=== PATIENT | male | born 1975 | race Caucasian/White ===

== ENCOUNTER 2017-10-04 19:06 | Emergency (ER) | payer BC ==
[2017-10-04 19:36] LABS: Absolute Lymphocytes (CBC) 1.9 K/uL (0.7-4.9); Absolute Monocytes 0.6 K/uL (0.1-1.3); Absolute Neutrophil 6.9 K/uL (1.8-8.0); Basophils % 0.4 % (0-1.3); Eosinophils % 0.8 % (0-4.4); Lymphocytes % 20.1 % (15.3-44.8); MCV 90.1 fL (80-100); MPV 7.9 fL (7.6-11.3)
[2017-10-04 19:56] LABS: Potassium 3.1 mEq/L (3.6-5.0)
[2017-10-04 20:03] LABS: Albumin 4.7 g/dL (3.2-5.5); Bilirubin Direct 0.2 mg/dL (0-0.2); Bilirubin Total 1.7 mg/dL (0.3-1.2); Magnesium 1.8 mg/dL (1.8-2.5); Protein, Total 7.9 g/dL (6.0-8.3)
[2017-10-04] MEDS ORDERED: NA CHLORIDE 0.9% 1,000 ML ONE (20:13)
[2017-10-04] MEDS ORDERED: POTASSIUM CL SA 10 MEQ TAB PO ONE (20:13)
[2017-10-04] MEDS ORDERED: PROMETHAZINE 25 MG/ML VIAL ONE (20:13)
--- NOTE | 2017-10-04 21:44 | EDPHYS ---
Physician Documentation [facility] Name: Deniz Sanchez Jr Age: 41 yrs Sex: Male : 1975 Arrival Date: 10/04/2017 Time: 19:08 Bed 19 Private MD: ED Physician Elvis Parson HPI: 10/04 21:21 This 41 yrs old Male presents to ER via Ambulatory with complaints of Nausea, jr8 Numbness Of Hand, DEHYDRATION. 21:21 The patient presents to the emergency department with nausea, vomiting, diarrhea. jr8 Onset: The symptoms/episode began/occurred gradually, 2 week(s) ago. Possible causes: unknown. The symptoms are aggravated by food , The symptoms are alleviated by nothing. Associated signs and symptoms: Pertinent positives: numbness of arms. The patient has experienced a previous episode. The patient has not recently seen a physician. Patient stated that he has been seeing GI for chronic n/v/d. Stated that he had numbness down both arms today. Has had this once before and was seen and found to have electrolyte disturbance . Historical: - Allergies: 19:15 No Known Allergies; la1 - PMHx: 19:15 Hypertension; la1 - Immunization history:: Adult Immunizations up to date. - Social history:: Smoking status: Patient/guardian denies using tobacco. ROS: 21:21 Eyes: Negative for injury, pain, redness, and discharge, ENT: Negative for injury, jr8 pain, and discharge, Neck: Negative for injury, pain, and swelling, Cardiovascular: Negative for chest pain, palpitations, and edema, Respiratory: Negative for shortness of breath, cough, wheezing, and pleuritic chest pain, Back: Negative for injury and pain, MS/Extremity: Negative for injury and deformity, Skin: Negative for injury, rash, and discoloration. 21:21 Abdomen/GI: Positive for nausea, vomiting, and diarrhea, Negative for abdominal pain, abdominal distension, anorexia, dysphagia, hematemesis, black/tarry stool, rectal pain, rectal bleeding, bowel incontinence, flatulence. 21:21 Neuro: Positive for numbness, Negative for altered mental status, dizziness, gait disturbance, headache, hearing loss, loss of consciousness, seizure activity, speech changes, syncope, near syncope, tingling, tinnitus, tremor, visual changes, weakness. Exam: 21:21 Eyes: Pupils equal round and reactive to light, extra-ocular motions intact. Lids and jr8 lashes normal. Conjunctiva and sclera are non-icteric and not injected. Cornea within normal limits. Periorbital areas with no swelling, redness, or edema. ENT: Nares patent. No nasal discharge, no septal abnormalities noted. Tympanic membranes are normal and external auditory canals are clear. Oropharynx with no redness, swelling, or masses, exudates, or evidence of obstruction, uvula midline. Mucous membranes moist. Neck: Trachea midline, no thyromegaly or masses palpated, and no cervical lymphadenopathy. Supple, full range of motion without nuchal rigidity, or vertebral point tenderness. No Meningismus. Cardiovascular: Regular rate and rhythm with a normal S1 and S2. No gallops, murmurs, or rubs. Normal PMI, no JVD. No pulse deficits. Respiratory: Lungs have equal breath sounds bilaterally, clear to auscultation and percussion. No rales, rhonchi or wheezes noted. No increased work of breathing, no retractions or nasal flaring. Abdomen/GI: Soft, non-tender, with normal bowel sounds. No distension or tympany. No guarding or rebound. No evidence of tenderness throughout. Back: No spinal tenderness. No costovertebral tenderness. Full range of motion. Skin: Warm, dry with normal turgor. Normal color with no rashes, no lesions, and no evidence of cellulitis. MS/ Extremity: Pulses equal, no cyanosis. Neurovascular intact. Full, normal range of motion. Neuro: Awake and alert, GCS 15, oriented to person, place, time, and situation. Cranial nerves II-XII grossly intact. Motor strength 5/5 in all extremities. Sensory grossly intact. Cerebellar exam normal. Normal gait. Vital Signs: 19:15 BP 129 / 96; Pulse 100; Resp 19; Temp 98.4; Pulse Ox 100% on R/A; Weight 78.02 kg; la1 Height 5 ft. 8 in. (172.72 cm); 20:21 BP 129 / 93; Pulse 77; Resp 16; Pulse Ox 99% ; Pain 0/10; ao 21:24 BP 136 / 87; Pulse 70; Resp 16; Pulse Ox 99% on R/A; Pain 0/10; ao 19:15 Body Mass Index 26.15 (78.02 kg, 172.72 cm) la1 MDM: 19:17 Patient medically screened. jr8 21:42 Data reviewed: vital signs, nurses notes, lab test result(s), and as a result, I will jr8 discharge patient. Data reviewed: EKG. Data interpreted: Pulse oximetry: on room air is 99 %. Interpretation: normal. 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 Response to treatment: the patient's symptoms have markedly improved after treatment, patient is well hydrated. 10/04 19:18 Order name: Basic Metabolic Panel; Complete Time: 20:08 [facility] 10/04 19:18 Order name: CBC with Diff; Complete Time: 20:08 [facility] 10/04 19:18 Order name: CPK; Complete Time: 20: [facility] 10/04 19:18 Order name: LFT's; Complete Time: 20:08 [facility] 10/04 19:18 Order name: Magnesium; Complete Time: 20:08 [facility] 10/04 21:59 Order name: Urine Dipstick--Ancillary (enter results) 1 10/04 19:18 Order name: Cardiac monitoring; Complete Time: 19:42 10/04 19:18 Order name: EKG - Nurse/Tech; Complete Time: 19:42 [facility] 10/04 19:18 Order name: IV Saline Lock; Complete Time: 19:28 [facility] 10/04 19:18 Order name: Labs collected and sent; Complete Time: 19:28 [facility] 10/04 19:18 Order name: O2 Per Protocol; Complete Time: 19:28 [facility] 10/04 19:18 Order name: O2 Sat Monitoring; Complete Time: 19:28 [facility] 10/04 19:18 Order name: Urine Dipstick-Ancillary (obtain specimen); Complete Time: 21:54 jr Administered Medications: 20:21 Drug: NS 0.9% 1000 ml Route: IV; Rate: 1000 ml; Site: left antecubital; ao 21:53 Follow up: IV Status: Completed infusion; IV Intake: 1000ml ao 21:54 Follow up: IV Status: Completed infusion ao 20: Drug: Potassium Chloride 40 mEq Route: PO; ao 21:54 Follow up: Response: No adverse reaction ao 20: Drug: Phenergan 12.5 mg Route: IVP; Site: left antecubital; ao 21:54 Follow up: Response: No adverse reaction ao Disposition: 10/05 03:12 Co-signature as Attending Physician, Elvis Parson MD I agree with the assessment and tw4 plan of care. Disposition: 10/04/17 21:43 Discharged to Home. Impression: Paresthesia of skin, Hypokalemia, Dehydration. - Condition is Stable. - Discharge Instructions: Dehydration, Adult, Paresthesia, Hypokalemia. - Prescriptions for promethazine 25 mg Oral Tablet - take 1 tablet by ORAL route every 6 hours As needed; 20 tablet. - Medication Reconciliation Form, Thank You Letter, Antibiotic Education, Prescription Opioid Use form. - Follow up: Tito Calzada MD; When: 2 - 3 days; Reason: Recheck today's complaints, Continuance of care, Re-evaluation by your physician. - Problem is new. - Symptoms have improved. Signatures: Dispatcher [employer] EDQuoc Cote PA PA jr8 Carl Elam RN KIMBERLY la1 Luis Ayon RN Elvis Franco MD MD tw4
--- NOTE | 2017-10-04 21:44 | ER ---
Nurse's Notes [facility] Name: Deniz Sanchez Jr Age: 41 yrs Sex: Male : 1975 Arrival Date: 10/04/2017 Time: 19:08 Bed 19 Private MD: Diagnosis: Paresthesia of skin;Hypokalemia;Dehydration Presentation: 10/04 19:14 Presenting complaint: Patient states: About a month ago I had numbness in my hands and la1 it turned out my electrolytes were off. Its happening again today and I am schedule to have a bunch of tests with GI this coming week. Transition of care: patient was not received from another setting of care. Onset of symptoms was October 04, 2017. Initial Sepsis Screen: Does the patient meet any 2 criteria? No. Patient's initial sepsis screen is negative. Does the patient have a suspected source of infection? No. Patient's initial sepsis screen is negative. Care prior to arrival: None. 19:14 Method Of Arrival: Ambulatory la1 19:14 Acuity: CHARLES 3 la1 Triage Assessment: 19:28 GI: Reports nausea. ao Historical: - Allergies: 19:15 No Known Allergies; la1 - PMHx: 19:15 Hypertension; la1 - Immunization history:: Adult Immunizations up to date. - Social history:: Smoking status: Patient/guardian denies using tobacco. Screenin:27 Abuse screen: Denies threats or abuse. Denies injuries from another. Nutritional ao screening: No deficits noted. Tuberculosis screening: No symptoms or risk factors identified. Fall Risk None identified. Assessment: 19:23 General: Appears in no apparent distress. comfortable, Behavior is calm, cooperative, ao appropriate for age. Pain: Denies pain. Neuro: Level of Consciousness is awake, alert, obeys commands, Oriented to person, place, time, situation, Appropriate for age Moves all extremities. Speech is normal, Facial symmetry appears normal. Cardiovascular: Patient's skin is warm and dry. Respiratory: Airway is patent Respiratory effort is even, unlabored, Respiratory pattern is regular, symmetrical. GI: Abdomen is non-distended. : No signs and/or symptoms were reported regarding the genitourinary system. EENT: No signs and/or symptoms were reported regarding the EENT system. Derm: No signs and/or symptoms reported regarding the dermatologic system. Skin is pink, warm \T\ dry. Skin temperature is warm. Musculoskeletal: No signs and/or symptoms reported regarding the musculoskeletal system. 20:21 Reassessment: Patient appears in no apparent distress at this time. No changes from ao previously documented assessment. Patient and/or family updated on plan of care and expected duration. Pain level reassessed. 21:24 Reassessment: Patient appears in no apparent distress at this time. Patient and/or ao family updated on plan of care and expected duration. Pain level reassessed. Vital Signs: 19:15 BP 129 / 96; Pulse 100; Resp 19; Temp 98.4; Pulse Ox 100% on R/A; Weight 78.02 kg; la1 Height 5 ft. 8 in. (172.72 cm); 20:21 BP 129 / 93; Pulse 77; Resp 16; Pulse Ox 99% ; Pain 0/10; ao 21:24 BP 136 / 87; Pulse 70; Resp 16; Pulse Ox 99% on R/A; Pain 0/10; ao 19:15 Body Mass Index 26.15 (78.02 kg, 172.72 cm) la1 ED Course: 19:08 Patient arrived in ED. es 19:15 Triage completed. la1 19:15 Arm band placed on left wrist. la1 19:17 Quoc Greco PA is PHCP. jr8 19:17 Elvis Parson MD is Attending Physician. jr8 19:23 Luis Ayon, RN is Primary Nurse. ao 19:25 Inserted saline lock: 22 gauge in left antecubital area, using aseptic technique. Blood jb5 collected. 19:27 Patient has correct armband on for positive identification. Pulse ox on. NIBP on. ao 19:42 Basic Metabolic Panel Sent. jb5 19:42 CBC with Diff Sent. jb5 19:42 CPK Sent. jb5 19:42 LFT's Sent. jb5 19:42 Magnesium Sent. jb5 21:43 Tito Calzada MD is Referral Physician. jr8 22:01 No provider procedures requiring assistance completed. IV discontinued, intact, ao bleeding controlled, No redness/swelling at site. Pressure dressing applied. Administered Medications: 20:21 Drug: NS 0.9% 1000 ml Route: IV; Rate: 1000 ml; Site: left antecubital; ao 21:53 Follow up: IV Status: Completed infusion; IV Intake: 1000ml ao 21:54 Follow up: IV Status: Completed infusion ao 20:21 Drug: Potassium Chloride 40 mEq Route: PO; ao 21:54 Follow up: Response: No adverse reaction ao 20:21 Drug: Phenergan 12.5 mg Route: IVP; Site: left antecubital; ao 21:54 Follow up: Response: No adverse reaction ao Intake: 21:53 IV: 1000ml; Total: 1000ml. ao Outcome: 21:43 Discharge ordered by MD. babb 22:02 Discharged to home ambulatory. ao 22:02 Condition: stable 22:02 Discharge instructions given to patient, family, Instructed on discharge instructions, follow up and referral plans. Demonstrated understanding of instructions, follow-up care, medications, Prescriptions given X 1. 22:02 Patient left the ED. ao Signatures: Malia Kerr Josh, PA PA jr8 Attema, Lee, RN RN la1 Ortiz, Alex, RN RN ao Broussard, Jennifer jb5
[2017-10-04 22:07] VITALS: TEMP 98.4
[2017-10-04 22:09] VITALS: O2SAT 99
[2017-10-04 22:10] VITALS: BP 136/87
[2017-10-04 22:17] LABS: Urine Blood NEGATIVE (NEG); Urine Glucose NEGATIVE (NEG); Urine Protein NEGATIVE (NEG)
--- NOTE | 2017-10-05 07:03 | EKG ---
Test Date: 2017-10-04 Test Time: 19:35:39 Emergency Department Director: SANDRA MEASUREMENT RESULTS: Intervals: Rate: 78 OK: 140 QRSD: 80 QT: 378 QTc: 430 Fannin: P: 56 OK: 140 QRS: 44 T: 56 INTERPRETIVE STATEMENTS: Normal sinus rhythm Normal ECG Compared to ECG 08/28/2017 15:03:13 Ventricular premature complex(es) no longer present Electronically Signed On 10-05-17 07:02:57 CDT by Yosef Blankenship
== END 2017-10-04 22:02 | disposition home or self-care (01) ==
LOC: ER 19:06
DX: R20.2 Paresthesia of skin (principal); E86.0 Dehydration; E87.6 Hypokalemia; I10 Essential (primary) hypertension
CPT/HCPCS: 36415; 80048; 80076; 81003; 82550; 83735; 85025; 93005; 96361; 96374; 99284; J2550; J7030

== ENCOUNTER 2017-11-23 17:36 | Inpatient (IN) | payer BC ==
[2017-11-23 19:30] LABS: Absolute Lymphocytes (CBC) 0.8 K/uL (0.7-4.9); Absolute Monocytes 0.8 K/uL (0.1-1.3); Absolute Neutrophil 14.4 K/uL (1.8-8.0); Basophils % 0.3 % (0-1.3); Eosinophils % 0.2 % (0-4.4); Hematocrit 49.6 % (39.6-49.0); Lymphocytes % 5.2 % (15.3-44.8); MCH 30.4 pg (27.0-35.0); MCV 92.1 fL (80-100); MPV 8.7 fL (7.6-11.3); RBC Red Blood Cell Count 5.38 M/uL (4.33-5.43)
[2017-11-23] MEDS ORDERED: ONDANSETRON 4 MG/2 ML VIAL ONE (19:31)
[2017-11-23] MEDS ORDERED: MORPHINE 4 MG/ML SYR ONE (19:31)
[2017-11-23] MEDS ORDERED: NA CHLORIDE 0.9% 1,000 ML ONE (19:31)
[2017-11-23 19:41] LABS: Potassium 3.5 mEq/L (3.6-5.0)
[2017-11-23 19:47] LABS: Albumin 5.2 g/dL (3.2-5.5); Bilirubin Direct 0.1 mg/dL (0-0.2); Bilirubin Total 1.2 mg/dL (0.3-1.2); Protein, Total 8.8 g/dL (6.0-8.3)
[2017-11-23 20:37] LABS: Blood Morphology Comment NOT SEEN (NOT SEEN); Platelet Estimate ADEQ; Urine White Blood Cell Casts OK
--- NOTE | 2017-11-23 20:41 | RAD REPORT ---
EXAM DESCRIPTION: CT - Abdomen Pelvis W Contrast - 11/23/2017 8:23 pm CLINICAL HISTORY: Abdominal pain COMPARISON: None. TECHNIQUE: Biphasic, helical CT imaging of the abdomen and pelvis was performed following 100 ml non -ionic IV contrast. No oral contrast was given. All CT scans are performed using dose optimization technique as appropriate and may include automated exposure control or mA/KV adjustment according to patient size. FINDINGS: No suspicious findings in the lung bases. The liver, spleen, and pancreas show no suspicious findings. Cholecystectomy clips are present. Bilia ry tree within normal limits. Liver is borderline or mildly fatty infiltrated. Symmetric renal function is seen with no hydronephrosis or suspicious renal mass. No pyelonephritis o r acute renal parenchymal process. Partially filled urinary bladder shows no suspicious finding. Pros tristan gland and seminal vesicles are normal range. Fluid is retained within the stomach. No gastric wall thickening or mass. Distal esophageal fluid is probably reflux. No acute duodenum abnormality. Just distal to the ligament of Treitz there is dilate d small bowel. Focal narrowing is seen in the mid abdomen with abrupt tapering of the small bowel. Th ere is further dilatation downstream of this transition point. A focally obstructing mass is not iden tified. More distally the small bowel shows additional mild dilatation. Most of the distal small tony l is normal in diameter or decompressed. No colon dilatation. Colon is mostly decompressed. No free air, free fluid or inflammatory stranding. No mass or bulky lymphadenopathy. No adrenal abno rmality. No suspicious bony findings. IMPRESSION: Proximal small bowel obstruction with an abrupt transition in the posterior mid abdomen. Adhesion or internal hernia would be suspected. No obstructing mass identified. No free air, perforation or other surgically emergent finding. Fatty infiltration of the liver with cholecystectomy change. Biliary tree is normal. No pyelonephritis or acute finding.
--- NOTE | 2017-11-23 21:08 | EDPHYS ---
Physician Documentation [facility] Name: Deniz Sanchez Jr Age: 42 yrs Sex: Male : 1975 Arrival Date: 11/23/2017 Time: 17:40 Bed 15 Private MD: Guillermo [facility] ED Physician Iker Oneal HPI: 11/23 19:20 This 42 yrs old Male presents to ER via Wheelchair with complaints of jmm POSSIBLE BOWEL OBSTRUCTION. 19:20 Onset: The symptoms/episode began/occurred acutely, noon. Associated signs and jmm symptoms: Pertinent positives: abdominal pain, diarrhea, vomiting. Modifying factors: The patient symptoms are alleviated by nothing, the patient symptoms are aggravated by nothing. The patient has experienced a previous episode. Historical: - Allergies: 18:07 No Known Allergies; hb - PMHx: 18:07 Hypertension; hb - Immunization history:: Adult Immunizations up to date. - Social history:: Smoking status: Patient/guardian denies using tobacco. - Ebola Screening: : No symptoms or risks identified at this time. ROS: 19:20 Constitutional: Negative for fever, chills, and weight loss, Cardiovascular: Negative jmm for chest pain, palpitations, and edema, Respiratory: Negative for shortness of breath, cough, wheezing, and pleuritic chest pain. 19:20 Back: Negative for injury and pain, MS/Extremity: Negative for injury and deformity, Skin: Negative for injury, rash, and discoloration, Neuro: Negative for headache, weakness, numbness, tingling, and seizure. 19:20 Abdomen/GI: Positive for abdominal pain, nausea and vomiting, diarrhea. 19:20 All other systems are negative. Exam: 19:20 Constitutional: This is a well developed, well nourished patient who is awake, alert, jmm and in no acute distress. Head/Face: atraumatic. Chest/axilla: Normal chest wall appearance and motion. Nontender with no deformity. No lesions are appreciated. Cardiovascular: Regular rate and rhythm. No gallops, murmurs, or rubs. Full/Equal distal pulses. Respiratory: Lungs have equal breath sounds bilaterally, clear to auscultation. No rales, rhonchi or wheezes noted. No increased work of breathing, no retractions or nasal flaring. 19:20 Abdomen/GI: Inspection: abdomen appears normal, Bowel sounds: diminished, Palpation: soft, mild abdominal tenderness, in the right upper quadrant and left upper quadrant. 19:20 Back: ROM is normal, CVA tenderness, is absent. 19:20 Musculoskeletal/extremity: ROM: no acute changes. 19:20 Skin: Appearance: Color: normal in color, Temperature: normal temperature. 19:20 Neuro: Orientation: is normal, Mentation: is normal, Memory: is normal. 19:20 Psych: Behavior/mood is pleasant, cooperative. Vital Signs: 18:07 BP 136 / 91; Pulse 99; Resp 18; Temp 98.2; Pulse Ox 100% on R/A; Weight 72.12 kg; hb Height 5 ft. 9 in. (175.26 cm); Pain 3/10; 19:07 BP 133 / 119; Pulse 101; Resp 18 S; Pulse Ox 100% on R/A; bs1 20:07 BP 142 / 88; Pulse 74; Resp 17; Pulse Ox 99% on R/A; Pain 7/10; bs1 21:07 BP 133 / 86; Pulse 78; Resp 16; Pulse Ox 99% on R/A; Pain 8/10; bs1 22:07 BP 131 / 96; Pulse 82; Resp 17; Temp 98(O); Pulse Ox 100% on R/A; Pain 7/10; bs1 23:05 BP 133 / 96; Pulse 78; Resp 16; Temp 97.9(O); Pulse Ox 97% on R/A; Pain 6/10; bs1 18:07 Body Mass Index 23.48 (72.12 kg, 175.26 cm) hb MDM: 19:21 Patient medically screened. [facility] 20:40 Data reviewed: vital signs, nurses notes. [facility] 20:40 Counseling: I had a detailed discussion with the patient and/or guardian regarding: the [facility] historical points, exam findings, and any diagnostic results supporting the discharge/admit diagnosis, lab results, radiology results, the need for further work-up and treatment in the hospital. Response to treatment: the patient's symptoms have markedly improved after treatment. 20:59 Physician consultation: Joby Arreola MD and will see patient tomorrow. [facility] 21:08 Physician consultation: Cheryl Weiss MD ACCEPTS ADMISISON. [facility] 11/23 18:26 Order name: Amylase, Serum; Complete Time: 20:27 ph 11/23 18:26 Order name: Basic Metabolic Panel; Complete Time: 20:27 ph 11/23 18:26 Order name: CBC with Diff; Complete Time: 20:43 ph 11/23 18:26 Order name: Creatinine for Radiology; Complete Time: 20:27 ph 11/23 18:26 Order name: Hepatic Function; Complete Time: 20:27 ph 11/23 18:26 Order name: Lipase; Complete Time: 20:27 ph 11/23 18:26 Order name: Urine Microscopic Only; Complete Time: 02:15 ph 11/23 19:21 Order name: CT Abd/Pelvis - W/Contrast; Complete Time: 20:43 jmm 11/23 19:34 Order name: CBC Smear Scan; Complete Time: 20:43 EDMS 11/23 21:51 Order name: Urine Dipstick--Ancillary (enter results); Complete Time: 02:15 ms 11/23 18:26 Order name: IV Saline Lock; Complete Time: 18:27 ph 11/23 18:26 Order name: Labs collected and sent; Complete Time: 18:27 ph 11 18:26 Order name: Urine Dipstick-Ancillary (obtain specimen); Complete Time: 21:49 ph 11 22:24 Order name: NG Tube; Complete Time: 22:50 bs1 Administered Medications: 19:37 Drug: morphine 2 mg Route: IVP; Site: right forearm; bs1 21:38 Follow up: Response: No adverse reaction bs1 19:38 Drug: Zofran 4 mg Route: IVP; Site: right forearm; bs1 21:38 Follow up: Response: No adverse reaction bs1 19:38 Drug: NS 0.9% 1000 ml Route: IV; Rate: 1 bolus; Site: right forearm; bs1 21:37 Follow up: IV Status: Completed infusion bs1 21:48 Drug: Cipro 400 mg Volume: 200 ml; Route: IVPB; Infused Over: 60 mins; Site: right bs1 forearm; 23:39 Follow up: IV Status: Completed infusion bs1 21:48 Drug: Flagyl 500 mg Volume: 100 ml; Route: IVPB; Rate: 200 ml/hr; Infused Over: 30 bs1 mins; Site: right forearm; 23:38 Follow up: IV Status: Completed infusion bs1 Disposition: 11/23/17 21:07 Hospitalization ordered by Cheryl Weiss for Inpatient Admission. Preliminary diagnosis is SMALL BOWEL OBSTRUCTION. - Bed requested for Telemetry/MedSurg (Inpatient). - Status is Inpatient Admission. bs1 - Condition is Stable. - Problem is new. - Symptoms have improved. UTI on Admission? No Addendum: 11/25/2017 15:27 Co-signature as Attending Physician, Iker Oneal MD I agree with the assessment and k plan of care. Signatures: Dispatcher [employer] EDSD Vicki Mackenzie RN RN Iker Oneal MD MD [facility] Chano Vazquez PA PA [facility] Myriam Boyd RN RN Sandee Roa, RN RN Marya Vaz, RN RN bs1 Corrections: (The following items were deleted from the chart) 11/23 21:43 21:07 Hospitalization Ordered by Cheryl Weiss MD for Inpatient Admission. Preliminary diagnosis is SMALL BOWEL OBSTRUCTION. Bed requested for Telemetry/MedSurg (Inpatient). Status is Inpatient Admission. Condition is Stable. Problem is new. Symptoms have improved. UTI on Admission? No. [facility] 23:59 21:43 11/23/2017 21:07 Hospitalization Ordered by Cheryl Weiss MD for Inpatient bs1 Admission. Preliminary diagnosis is SMALL BOWEL OBSTRUCTION. Bed requested for Telemetry/MedSurg (Inpatient). Status is Inpatient Admission. Condition is Stable. Problem is new. Symptoms have improved. UTI on Admission? No. dw
--- NOTE | 2017-11-23 21:08 | ER ---
Nurse's Notes [facility] Name: Deniz Sanchez Jr Age: 42 yrs Sex: Male : 1975 Arrival Date: 11/23/2017 Time: 17:40 Bed 15 Private MD: Silvestre Li Diagnosis: SMALL BOWEL OBSTRUCTION Presentation: 11/23 18:06 Presenting complaint: Patient states: Sent by Dr. Calzada to r/o SBO. Pt reports N/V/D hb and upper abdominal pain since 1200 today. Transition of care: patient was not received from another setting of care. Onset of symptoms was November 23, 2017. Risk Assessment: Do you want to hurt yourself or someone else? Patient reports no desire to harm self or others. Initial Sepsis Screen: Does the patient meet any 2 criteria?. Care prior to arrival: None. 18:06 Method Of Arrival: Wheelchair hb 18:06 Acuity: CHARLES 3 hb 19:20 Initial Sepsis Screen: Does the patient have a suspected source of infection?. ph Historical: - Allergies: 18:07 No Known Allergies; hb - PMHx: 18:07 Hypertension; hb - Immunization history:: Adult Immunizations up to date. - Social history:: Smoking status: Patient/guardian denies using tobacco. - Ebola Screening: : No symptoms or risks identified at this time. Screenin:24 Abuse screen: Denies threats or abuse. Denies injuries from another. Nutritional ph screening: No deficits noted. Tuberculosis screening: No symptoms or risk factors identified. Fall Risk None identified. Assessment: 18:30 General: Appears in no apparent distress. uncomfortable, slender, well groomed, ph Behavior is calm, cooperative, appropriate for age, Denies fever. Pain: Complains of pain in right upper quadrant and left upper quadrant. Neuro: Level of Consciousness is awake, alert, obeys commands, Oriented to person, place, time, situation. Cardiovascular: Capillary refill < 3 seconds in bilateral fingers Patient's skin is warm and dry. Respiratory: Airway is patent Respiratory effort is even, unlabored, Respiratory pattern is regular, symmetrical. GI: GI: Reports upper abdominal pain, diarrhea, nausea, vomiting. 19:05 Reassessment: Report received from KIMBERLY Miguel. bs1 19:05 General: Appears in no apparent distress. uncomfortable, slender, well groomed, bs1 Behavior is calm, cooperative, appropriate for age. Pain: Complains of pain in abdomen and left upper quadrant and right upper quadrant Pain does not radiate. Neuro: Level of Consciousness is awake, alert, obeys commands, Oriented to person, place, time, situation. Cardiovascular: Denies chest pain, shortness of breath, Heart tones S1 S2 present Capillary refill < 3 seconds Patient's skin is warm and dry. Respiratory: Airway is patent Trachea midline Respiratory effort is even, unlabored, Respiratory pattern is regular, symmetrical, Breath sounds are clear bilaterally. GI: Reports upper abdominal pain, diarrhea, nausea, vomiting. : No signs and/or symptoms were reported regarding the genitourinary system. EENT: No signs and/or symptoms were reported regarding the EENT system. Derm: No signs and/or symptoms reported regarding the dermatologic system. Skin is intact, Skin is pink, warm \T\ dry. Musculoskeletal: Circulation, motion, and sensation intact. Capillary refill < 3 seconds, Range of motion: intact in all extremities. 19:20 Derm: Skin is intact, Skin is pink, warm \T\ dry. Musculoskeletal: Circulation, motion, ph and sensation intact. Range of motion: intact in all extremities. 22:25 Reassessment: Verbal order from admitting physician Dr Burks to insert NG tube to bs1 LWIS. 23:06 Reassessment: Patient appears in no apparent distress at this time. Patient and/or bs1 family updated on plan of care and expected duration. Pain level reassessed. Patient is alert, oriented x 3, equal unlabored respirations, skin warm/dry/pink. Patient s/p NG tube, 300cc of light green bile noted. Vital Signs: 18:07 BP 136 / 91; Pulse 99; Resp 18; Temp 98.2; Pulse Ox 100% on R/A; Weight 72.12 kg; hb Height 5 ft. 9 in. (175.26 cm); Pain 3/10; 19:07 BP 133 / 119; Pulse 101; Resp 18 S; Pulse Ox 100% on R/A; bs1 20:07 BP 142 / 88; Pulse 74; Resp 17; Pulse Ox 99% on R/A; Pain 7/10; bs1 21:07 BP 133 / 86; Pulse 78; Resp 16; Pulse Ox 99% on R/A; Pain 8/10; bs1 22:07 BP 131 / 96; Pulse 82; Resp 17; Temp 98(O); Pulse Ox 100% on R/A; Pain 7/10; bs1 23:05 BP 133 / 96; Pulse 78; Resp 16; Temp 97.9(O); Pulse Ox 97% on R/A; Pain 6/10; bs1 18:07 Body Mass Index 23.48 (72.12 kg, 175.26 cm) hb ED Course: 17:40 Patient arrived in ED. sb2 17:40 Silvestre Li DO is Private Physician. sb2 18:07 Triage completed. hb 18:07 Arm band placed on left wrist. hb 18:23 Myriam Boyd, RN is Primary Nurse. ph 18:24 Patient has correct armband on for positive identification. Placed in gown. Bed in low ph position. Call light in reach. Side rails up X 1. Pulse ox on. NIBP on. 18:38 Chano Vazquez PA is PHCP. [facility] 18:38 Iker Oneal MD is Attending Physician. jmm 18:45 Inserted saline lock: 20 gauge in right antecubital area, using aseptic technique. ph 19:20 Initial lab(s) drawn, by ia, sent to lab. [facility] 20:23 CT Abd/Pelvis - W/Contrast In Process Unspecified. EDMS 20:24 CT completed. Patient tolerated procedure well. Patient moved to CT via wheelchair. Patient moved back from [place]. 21:07 Cheryl Weiss MD is Hospitalizing Provider. [facility] 22:45 NGT: inserted 14 Fr. via right nare. verified placement of air over stomach, verified bs1 return of gastric contents, to intermittent suction. Returned gastric contents. Returned bile. Patient tolerated well. 22:52 No provider procedures requiring assistance completed. Patient admitted, IV remains in bs1 place. intact. Administered Medications: 19:37 Drug: morphine 2 mg Route: IVP; Site: right forearm; bs1 21:38 Follow up: Response: No adverse reaction bs1 19:38 Drug: Zofran 4 mg Route: IVP; Site: right forearm; bs1 21:38 Follow up: Response: No adverse reaction bs1 19:38 Drug: NS 0.9% 1000 ml Route: IV; Rate: 1 bolus; Site: right forearm; bs1 21:37 Follow up: IV Status: Completed infusion bs1 21:48 Drug: Cipro 400 mg Volume: 200 ml; Route: IVPB; Infused Over: 60 mins; Site: right bs1 forearm; 23:39 Follow up: IV Status: Completed infusion bs1 21:48 Drug: Flagyl 500 mg Volume: 100 ml; Route: IVPB; Rate: 200 ml/hr; Infused Over: 30 bs1 mins; Site: right forearm; 23:38 Follow up: IV Status: Completed infusion bs1 Outcome: 21:07 Decision to Hospitalize by Provider. [facility] 22:52 Condition: stable bs1 23:58 Admitted to Med/surg accompanied by nurse, via wheelchair, room 213, with chart, Report bs1 called to CRISTINA Wilson 23:58 Instructed on the need for admit, Demonstrated understanding of instructions, follow-up care. 23:59 Patient left the ED. bs1 Signatures: Dispatcher [employer] EDMS Chano Vazquez PA PA [facility] Daquan Richter Patricia, RN RN Sandee Roa, RN RN Marya Vaz RN RN bs1 Edie Mathew sb2 Jaret Bishop jp3 Corrections: (The following items were deleted from the chart) 19:20 18:30 GI: ph ph 22:52 22:25 Reassessment: Verbal order from admitting physician Dr Burks to insert NG tube bs1 bs1
[2017-11-23] MEDS ORDERED: METRONIDAZOLE 500mg IVPB 500 MG/100 ML BAG IV ONE (21:42)
[2017-11-23] MEDS ORDERED: CIPROFLOXACIN 400mg IV 400 MG/200 ML BAG IV ONE (21:42)
[2017-11-23 22:02] LABS: Urine Blood NEGATIVE (NEG); Urine Glucose NEGATIVE (NEG); Urine Protein NEGATIVE (NEG); Urine Specific Gravity <1.005 (1.005-1.030)
[2017-11-23 22:11] LABS: Urine Bacteria NONE SEEN /HPF (NONE SEEN); Urine RBC <5 /HPF (NONE SEEN)
[2017-11-23 22:12] LABS: Urine Culture Reflex Order NOT NEEDED
--- NOTE | 2017-11-23 22:24 | P.HP ---
Certification for Inpatient Patient admitted to: Inpatient With expected LOS: >2 Midnights Practitioner: I am a practitioner with admitting privileges, knowledge of patient current condition, hospital course, and medical plan of care. Services: Services provided to patient in accordance with Admission requirements found in Title 42 Section 412.3 of the Code of Federal Regulations Patient History Date of Service: 11/23/17 Reason for admission: SBO History of Present Illness: Mr Sanchez is a 42 years old male with history of HTN, GERD, diagnosed with H.Pylori about 2 months ago, already finished his treatment, came to ED complaining of nausea/vomiting and abdominal pain. His symptoms started today around noon. He described severe abdominal pain, constant, about 8/10 of intensity, associated with N/V. Last time he had a bowel movement was this morning, it was loose, after that he was not able to pass gas. He went to see Dr Calzada, who after evaluation, sent the patient to ED to R/O bowel obstruction. He denied any fever or chills. In ED the patient remain nauseated, and he feels abdominal bloating. Lab work remarkable for leukocytosis, CT abd/ pelvis shows SBO with transition point in mid abdomen. Allergies No Known Allergies Allergy (Unverified 08/28/17 19:43) - Past Medical/Surgical History -: HTN -: H.pylori -: GERD -: colon resection (at 3 days old) - Family History Family History: Reviewed- Non-Contributory - Social History Smoking Status: Current every day smoker (tobac[place] smoking) Alcohol use: No CD- Drugs: No Place of Residence: Home Review of Systems 10-point ROS is otherwise unremarkable Physical Examination - Physical Exam General: Alert, In no apparent distress HEENT: Atraumatic, PERRLA, Mucous membr. moist/pink, EOMI, Sclerae nonicteric Neck: Supple, 2+ carotid pulse no bruit, No LAD, Without JVD or thyroid abnormality Respiratory: Clear to auscultation bilaterally, Normal air movement Cardiovascular: Regular rate/rhythm, Normal S1 S2 Gastrointestinal: Hypoactive, Distended, Tenderness Musculoskeletal: No tenderness Integumentary: No rashes Neurological: Normal speech, Normal strength at 5/5 x4 extr, Normal tone, Normal affect Lymphatics: No axilla or inguinal lymphadenopathy - Studies Laboratory Data (last 24 hrs) 11/23/17 18:20: Creatinine 1.27 H 11/23/17 18:20: WBC 16.1 H, Hgb 16.4, Hct 49.6 H, Plt Count 304 11/23/17 18:20: Sodium 140, Potassium 3.5 L, BUN 12, Creatinine 1.32 H, Glucose 135 H, Total Bilirubin 1.2, AST 30, ALT 31, Alkaline Phosphatase 87, Amylase 46 , Lipase 27 Assessment and Plan - Problems (Diagnosis) (1) SBO (small bowel obstruction) Current Visit: Yes Status: Acute (2) HTN (hypertension) Current Visit: Yes Status: Acute Qualifiers: Hypertension type: essential hypertension Qualified Code(s): I10 - Essential (primary) hypertension (3) GERD (gastroesophageal reflux disease) Current Visit: Yes Status: Acute Qualifiers: Esophagitis presence: without esophagitis Qualified Code(s): K21.9 - Gastro -esophageal reflux disease without esophagitis - Plan The patient will be admitted to the hospital due to SBO. Will order NGT placement, IV fluids, bowel rest, and symptomatic medication for nausea/ vomiting and pain. Will order empiric abx, consult Dr Arreola. - Advance Directives Does patient have a Living Will: No Does patient have a Durable POA for Healthcare: No - Code Status/Comfort Care Code Status Assessed: Yes Code Status: Full Code
[2017-11-23] MEDS ORDERED: ONDANSETRON 4 MG/2 ML VIAL IV PRN (23:28)
[2017-11-23] MEDS ORDERED: Morphine 2 MG/2 ML SYR IV PRN (23:28)
[2017-11-24] MEDS: NA CHLORIDE 0.9% 1,000 ML IV SCH ×4 (00:16→23:28)
[2017-11-24 01:55] VITALS: BMI 23.3
[2017-11-24 05:05] LABS: Absolute Lymphocytes (CBC) 1.9 K/uL (0.7-4.9); Absolute Monocytes 1.1 K/uL (0.1-1.3); Absolute Neutrophil 8.4 K/uL (1.8-8.0); Basophils % 0.4 % (0-1.3); Eosinophils % 0.9 % (0-4.4); Hematocrit 45.6 % (39.6-49.0); Lymphocytes % 16.1 % (15.3-44.8); MCH 30.9 pg (27.0-35.0); MCV 92.4 fL (80-100); MPV 8.8 fL (7.6-11.3); Monocytes % 9.7 % (3.3-12.3); RBC Red Blood Cell Count 4.94 M/uL (4.33-5.43)
[2017-11-24 05:27] LABS: Potassium 4.1 mEq/L (3.6-5.0)
[2017-11-24] MEDS ORDERED: HYDRALAZINE HCL 20 MG/ML VIAL IV PRN (07:18)
[2017-11-24] MEDS ORDERED: SODIUM CHLORIDE 0.9% 10ML INJ IV PRN (07:18)
[2017-11-24] MEDS: METRONIDAZOLE 500mg IVPB 500 MG/100 ML BAG IV SCH ×2 (08:50→18:20)
[2017-11-24] MEDS: PANTOPRAZOLE 40 MG INJ IVP SCH ×2 (08:50→20:39)
[2017-11-24] MEDS: CIPROFLOXACIN 400mg IV 400 MG/200 ML BAG IV SCH ×2 (08:50→20:39)
[2017-11-24] MEDS ORDERED: MINERAL OIL 30 ML UCUP FT ONE (12:21)
--- NOTE | 2017-11-24 13:40 | P.PN ---
Subjective Date of Service: 11/24/17 Primary Care Provider: Dr. Li; GI-Dr. Calzada Chief Complaint: SBO Subjective: Other (NG tube in place. Abdominal pain stable.) Physical Examination - Vital Signs Temperature: 97.5 F Blood Pressure: 133/83 Pulse: 71 Respirations: 16 Pulse Ox (%): 99 - Physical Exam General: Alert, In no apparent distress, Oriented x3, Cooperative HEENT: Atraumatic, Mucous membr. moist/pink Neck: Supple Respiratory: Clear to auscultation bilaterally, Normal air movement Cardiovascular: Normal pulses, Regular rate/rhythm Gastrointestinal: Normal bowel sounds, Soft and benign, Non-distended, No masses , No rebound, No guarding, Tenderness (Pain to the upper abdominal region noted) Musculoskeletal: No erythema, No tenderness, No warmth Integumentary: No tenderness/swelling, No erythema, No warmth, No cyanosis Neurological: Normal speech, Normal strength at 5/5 x4 extr, Normal tone, Normal affect Lymphatics: No axilla or inguinal lymphadenopathy - Studies Laboratory Data (last 24 hrs) 11/23/17 18:20: Creatinine 1.27 H 11/23/17 18:20: WBC 16.1 H, Hgb 16.4, Hct 49.6 H, Plt Count 304 11/23/17 18:20: Sodium 140, Potassium 3.5 L, BUN 12, Creatinine 1.32 H, Glucose 135 H, Total Bilirubin 1.2, AST 30, ALT 31, Alkaline Phosphatase 87, Amylase 46 , Lipase 27 Medications List Reviewed: Yes Assessment & Plan - Problems (Diagnosis) (1) Hypokalemia Current Visit: Yes Status: Acute Plan: Will continue to monitor and replace appropriately. Replacement protocol in place. (2) Dehydration Current Visit: Yes Status: Acute Plan: Will continue IV fluids. Will monitor and adjust electrolytes. (3) Fatty liver Current Visit: Yes Status: Chronic Plan: CT scan shows fatty liver. Patient will need a follow up with GI as an outpatient to further evaluate. (4) GERD (gastroesophageal reflux disease) Onset Date: 11/24/17 Current Visit: Yes Status: Chronic Plan: Patient with history of H. pylori gastritis. Will continue with Protonix. Patient also reports a history of diverticulosis. Qualifiers: Esophagitis presence: without esophagitis Qualified Code(s): K21.9 - Gastro -esophageal reflux disease without esophagitis (5) HTN (hypertension) Onset Date: 11/24/17 Current Visit: Yes Status: Chronic Plan: Patient taking Bystolic at home. Will provide IV medication as needed. Qualifiers: Hypertension type: essential hypertension Qualified Code(s): I10 - Essential (primary) hypertension (6) SBO (small bowel obstruction) Onset Date: 11/24/17 Current Visit: Yes Status: Acute Plan: Small-bowel obstruction noted abrupt transition noted to the mid abdominal area. Radiology suspects internal hernia. Patient with history of cholecystectomy. Patient reports a history diverticulosis. Will continue with NG tube. Will monitor closely. Will provide medication for pain. Await further recommendations from surgery. If symptoms in condition worsens the patient may require surgical intervention. Discharge Plan: Home Plan to discharge in: 48 Hours Time Spent Managing Pts Care (In Minutes): 55
[2017-11-24] MEDS: ENOXAPARIN 40 MG/0.4 ML SQ SCH (18:20)
[2017-11-24] MEDS ORDERED: MINERAL OIL 30 ML UCUP PO ONE (19:00)
--- NOTE | 2017-11-24 19:54 | P.CNS ---
Date of Consult: 11/24/17 PC: This 42-year-old male presents emergency room with severe abdominal pain for diagnosis and treatment. HPC: Patient noticed sudden onset of abdominal pain, associated nausea and vomiting. Says he has also had associated upper abdominal pain. He states he has been having this off and on for the last few months. PMH: Negative (had the EGD, colonoscopy about 3 days ago.) PSHx: Patient states that he was operated on at 3-day-old suspicious for possible nec. Also previous laparoscopic cholecystectomy SOC: No known allergies SYS REVIEW:States he has otherwise been in good health. No cough, wheeze, shortness of breath no chest pain or palpitations. says he has lost a about 10 or 15 lb over the last few months. No urinary complaints O/E awake alert comfortable looking at the vital signs are stable HEENT: NG tube in place Chest: Air movement equal bilaterally ABD: Soft nontender no masses are palpable LOCO: Intact DATA: Had elevated white cell count which is coming down today. Minimal out through the nasogastric tube IMPRESSION: Possible intermittent partial obstruction with some adhesions PLAN: Patient has received mineral oil via nasogastric tube. Minimal output through the tube. Anticipate removal of NG tube, resumption of full liquid advance to regular diet. This could be worked up possibly as an outpatient. Patient may benefit from a barium swallow with follow-through.
[2017-11-25] MEDS: METRONIDAZOLE 500mg IVPB 500 MG/100 ML BAG IV SCH ×3 (00:07→17:43)
[2017-11-25 02:17] VITALS: O2SAT 99
[2017-11-25 05:42] LABS: Absolute Lymphocytes (CBC) 1.6 K/uL (0.7-4.9); Absolute Monocytes 0.7 K/uL (0.1-1.3); Absolute Neutrophil 5.6 K/uL (1.8-8.0); Basophils % 0.3 % (0-1.3); Eosinophils % 1.6 % (0-4.4); Hematocrit 40.3 % (39.6-49.0); Lymphocytes % 20.4 % (15.3-44.8); MCH 31.5 pg (27.0-35.0); MPV 8.6 fL (7.6-11.3); Monocytes % 8.5 % (3.3-12.3); RBC Red Blood Cell Count 4.38 M/uL (4.33-5.43)
[2017-11-25 05:44] LABS: Magnesium 1.8 mg/dL (1.8-2.5); Potassium 3.7 mEq/L (3.6-5.0)
[2017-11-25] MEDS: NA CHLORIDE 0.9% 1,000 ML IV SCH ×2 (05:52→15:28)
[2017-11-25] MEDS ORDERED: MAGNESIUM SULFATE 1 gm IVPB 1 GM/100 ML BAG IV ONE (07:30)
[2017-11-25] MEDS ORDERED: MORPHINE 4 MG/ML SYR IV PRN (07:44)
--- NOTE | 2017-11-25 08:25 | RAD REPORT ---
EXAM DESCRIPTION: RAD - Abdomen 1 View (KUB) - 11/25/2017 6:46 am CLINICAL HISTORY: Small bowel obstruction. COMPARISON: CT 11/23/2017 FINDINGS: A few mildly prominent small bowel loops are seen in the left abdomen, however there has b een significant improvement in the small bowel obstruction pattern. Enteric tube tip descends in the stomach. Cholecystectomy clips are seen. No suspicious calcifications. No evidence of pneumoperitoneum. IMPRESSION: Significant improvement in the small bowel obstruction pattern since comparative study.
[2017-11-25] MEDS ORDERED: KCL 20 MEQ/100 mL IVPB 20 MEQ/100 ML BAG IV SCH (08:30)
[2017-11-25] MEDS: PANTOPRAZOLE 40 MG INJ IVP SCH ×2 (09:27→21:12)
[2017-11-25] MEDS: CIPROFLOXACIN 400mg IV 400 MG/200 ML BAG IV SCH ×2 (09:27→21:12)
[2017-11-25] MEDS ORDERED: POTASSIUM 25 MEQ EFFERV TAB PO ONE (10:00)
--- NOTE | 2017-11-25 12:27 | P.PN ---
Subjective Date of Service: 11/25/17 Primary Care Provider: Dr. Li; GI-Dr. Calzada Chief Complaint: SBO Subjective: No new changes, Doing well, Other (minimal output through NGT, + bm this am. Dr. Meza has seen pt and recommends a full liquid diet. Recommends barium follow through - ordered.) Review of Systems General: Unremarkable Eyes: Unremarkable ENT: Unremarkable Respiratory: Unremarkable Cardiovascular: Unremarkable Gastrointestinal: Other (improved) Genitourinary: Unremarkable Musculoskeletal: Unremarkable Integumentary: Unremarkable Neurological: Unremarkable Lymphatics: Unremarkable Physical Examination - Vital Signs Temperature: 96.5 F Blood Pressure: 135/82 Pulse: 70 Respirations: 16 Pulse Ox (%): 98 - Physical Exam General: Alert, In no apparent distress, Oriented x3 HEENT: Atraumatic, Normocephalic, PERRLA Neck: 2+ carotid pulse no bruit Respiratory: Clear to auscultation bilaterally, Normal air movement Cardiovascular: No edema, Normal pulses Capillary refill: <2 Seconds Gastrointestinal: Normal bowel sounds, Soft and benign, Non-distended Musculoskeletal: No clubbing Integumentary: No rashes Neurological: Normal gait Lymphatics: No axilla or inguinal lymphadenopathy External genitalia: Deferred Rectal: Deferred - Studies Medications List Reviewed: Yes Assessment & Plan - Problems (Diagnosis) (1) SBO (small bowel obstruction) Onset Date: 11/24/17 Current Visit: Yes Status: Acute Plan: Improving, will remove NGT, advance diet to full and advance diet, barium follow through as recommended. Pt to f/u GI as outpatient Plan to discharge in: 24 Hours
--- NOTE | 2017-11-25 17:32 | P.PN ---
Date of Service: 11/25/17 Pt feels better, has upper gi ordered for tomorrow. if positive, will go to or thursday
[2017-11-25] MEDS: ENOXAPARIN 40 MG/0.4 ML SQ SCH (17:43)
[2017-11-26] MEDS: METRONIDAZOLE 500mg IVPB 500 MG/100 ML BAG IV SCH ×3 (00:34→16:24)
[2017-11-26] MEDS: NA CHLORIDE 0.9% 1,000 ML IV SCH ×4 (00:34→21:12)
[2017-11-26 05:19] LABS: Absolute Lymphocytes (CBC) 1.7 K/uL (0.7-4.9); Absolute Monocytes 0.5 K/uL (0.1-1.3); Absolute Neutrophil 3.1 K/uL (1.8-8.0); Basophils % 0.9 % (0-1.3); Eosinophils % 2.5 % (0-4.4); Hematocrit 38.6 % (39.6-49.0); Lymphocytes % 31.7 % (15.3-44.8); MCH 31.7 pg (27.0-35.0); MPV 8.4 fL (7.6-11.3); Monocytes % 9.1 % (3.3-12.3); RBC Red Blood Cell Count 4.25 M/uL (4.33-5.43)
[2017-11-26 05:42] LABS: Magnesium 2.1 mg/dL (1.8-2.5); Potassium 3.7 mEq/L (3.6-5.0)
[2017-11-26] MEDS ORDERED: KCL 20 MEQ/100 mL IVPB 20 MEQ/100 ML BAG IV SCH (06:45)
[2017-11-26] MEDS: CIPROFLOXACIN 400mg IV 400 MG/200 ML BAG IV SCH ×2 (08:23→21:10)
[2017-11-26] MEDS: PANTOPRAZOLE 40 MG INJ IVP SCH ×2 (08:24→21:11)
--- NOTE | 2017-11-26 12:26 | P.PN ---
Subjective Date of Service: 11/26/17 Primary Care Provider: Dr. iL; GI-Dr. Calzada Chief Complaint: SBO Pt seen and examined. Case DW with Surgery. Pt doing well overall. Awaiting Small bowel Series at this time. Currently NPO will advance diet once done with Small bowel Series Review of Systems General: As per HPI Physical Examination - Vital Signs Temperature: 97.8 F Blood Pressure: 128/73 Pulse: 74 Respirations: 16 Pulse Ox (%): 100 - Physical Exam General: Alert, In no apparent distress HEENT: Atraumatic, PERRLA, EOMI Neck: Supple, JVD not distended Respiratory: Clear to auscultation bilaterally, Normal air movement Cardiovascular: Regular rate/rhythm, Normal S1 S2 Gastrointestinal: Normal bowel sounds, No tenderness Musculoskeletal: No tenderness Integumentary: No rashes Neurological: Normal speech, Normal tone, Normal affect Lymphatics: No axilla or inguinal lymphadenopathy - Studies Medications List Reviewed: Yes Assessment & Plan - Problems (Diagnosis) (1) SBO (small bowel obstruction) Onset Date: 11/24/17 Current Visit: Yes Status: Acute Plan: SBO on the CT -Surgery consulted. Appreciated Reccs -S/p NG tube removal now. Doing well overall. -passing flatulence. No BM -Scheduled for Small bowel Series today -Will advance diet if negative (2) GERD (gastroesophageal reflux disease) Onset Date: 11/24/17 Current Visit: Yes Status: Chronic Qualifiers: Esophagitis presence: without esophagitis Qualified Code(s): K21.9 - Gastro -esophageal reflux disease without esophagitis (3) HTN (hypertension) Onset Date: 11/24/17 Current Visit: Yes Status: Chronic Qualifiers: Hypertension type: essential hypertension Qualified Code(s): I10 - Essential (primary) hypertension Discharge Plan: Home Plan to discharge in: 24 Hours - Code Status/Comfort Care Code Status Assessed: Yes Critical Care: No
--- NOTE | 2017-11-26 14:54 | RAD REPORT ---
EXAM DESCRIPTION: RAD - Small Bowel Series CLINICAL HISTORY: small bowel obstruction Abdominal pain COMPARISON: Abdomen Pelvis W Contrast dated 11/23/2017 FINDINGS: Cane Weigher film shows a nonspecific bowel gas pattern. No obstruction or free air. No suspiciou s calcifications. Cholecystectomy clips. Gastric size and mucosal fold pattern are normal. No delay in transit of contrast into the small tony l. Small bowel is normal in diameter with no mucosal fold thickening. No intrinsic or extrinsic mass identifiable. Terminal ileum has normal appearance. Transit time to the colon is normal. IMPRESSION: Resolution of the previously noted small bowel obstruction.
[2017-11-26] MEDS: ENOXAPARIN 40 MG/0.4 ML SQ SCH (16:24)
[2017-11-27] MEDS: METRONIDAZOLE 500mg IVPB 500 MG/100 ML BAG IV SCH ×2 (01:53→09:32)
[2017-11-27 05:43] LABS: Absolute Lymphocytes (CBC) 1.7 K/uL (0.7-4.9); Absolute Monocytes 0.5 K/uL (0.1-1.3); Absolute Neutrophil 2.5 K/uL (1.8-8.0); Basophils % 0.8 % (0-1.3); Eosinophils % 2.7 % (0-4.4); Hematocrit 39.2 % (39.6-49.0); Lymphocytes % 35.5 % (15.3-44.8); MCH 31.9 pg (27.0-35.0); MCV 90.6 fL (80-100); MPV 8.6 fL (7.6-11.3); Monocytes % 9.3 % (3.3-12.3); RBC Red Blood Cell Count 4.33 M/uL (4.33-5.43)
[2017-11-27 05:49] LABS: BUN Blood Urea Nitrogen < 5 mg/dL (6-20); Bicarbonate 25 mEq/L (21-31); Glucose Level 91 mg/dL (65-120); Potassium 3.8 mEq/L (3.6-5.0); Sodium Level 140 mEq/L (135-145)
[2017-11-27] MEDS ORDERED: POTASSIUM 25 MEQ EFFERV TAB PO ONE (06:15)
[2017-11-27] MEDS: NA CHLORIDE 0.9% 1,000 ML IV SCH (07:28)
[2017-11-27] MEDS: CIPROFLOXACIN 400mg IV 400 MG/200 ML BAG IV SCH (09:32)
[2017-11-27] MEDS: PANTOPRAZOLE 40 MG INJ IVP SCH (09:33)
[2017-11-27 15:13] VITALS: BP 124/79; TEMP 98.1
--- NOTE | 2017-11-27 17:56 | P.DS ---
Admission Date: 11/23/17 Discharge Date: 11/27/17 Primary Care Provider: Dr. Li; GI-Dr. Calzada Disposition: ROUTINE DISCHARGE Discharge Condition: GOOD Reason for Admission: SBO Consultations: Surgery - Problems (1) SBO (small bowel obstruction) Onset Date: 11/24/17 Status: Acute (2) GERD (gastroesophageal reflux disease) Onset Date: 11/24/17 Status: Chronic Qualifiers: Esophagitis presence: without esophagitis Qualified Code(s): K21.9 - Gastro -esophageal reflux disease without esophagitis (3) HTN (hypertension) Onset Date: 11/24/17 Status: Chronic Qualifiers: Hypertension type: essential hypertension Qualified Code(s): I10 - Essential (primary) hypertension Brief History of Present Illness: Mr Sanchez is a 42 years old male with history of HTN, GERD, diagnosed with H.Pylori about 2 months ago, already finished his treatment, came to ED complaining of nausea/vomiting and abdominal pain. His symptoms started today around noon. He described severe abdominal pain, constant, about 8/10 of intensity, associated with N/V. Last time he had a bowel movement was this morning, it was loose, after that he was not able to pass gas. He went to see Dr Calzada, who after evaluation, sent the patient to ED to R/O bowel obstruction. He denied any fever or chills. In ED the patient remain nauseated, and he feels abdominal bloating. Lab work remarkable for leukocytosis, CT abd/ pelvis shows SBO with transition point in mid abdomen. Hospital Course: Overall During the hospital stay pt remained stable Pt was initially admitted to the hospital with SBO. Surgery was consulted. Pt was placed NPO, NG tube was inserted and IV fluids were started. pt had good outpt with NG tube and has resolution of his symptoms. NG tube was DC and pt had a small bowel series done here which was consistent with resolution of SBO. Pt had passed BM and Flatulence and thus was discharged home under stable condition. Vital Signs/Physical Exam: Temp Pulse Resp BP Pulse Ox 98.1 F 74 18 124/79 100 11/27/17 12:00 11/27/17 12:00 11/27/17 12:00 11/27/17 12:00 11/27/17 12:00 General: Alert, In no apparent distress HEENT: Atraumatic, PERRLA, EOMI Neck: Supple, JVD not distended Respiratory: Clear to auscultation bilaterally, Normal air movement Cardiovascular: Regular rate/rhythm, Normal S1 S2 Gastrointestinal: Normal bowel sounds, No tenderness Musculoskeletal: No tenderness Integumentary: No rashes Neurological: Normal speech, Normal tone, Normal affect Lymphatics: No axilla or inguinal lymphadenopathy Laboratory Data at Discharge: WBC 4.9 K/uL (4.3-10.9) 11/27/17 04:43 Hgb 13.8 g/dL (13.6-17.9) 11/27/17 04:43 Hct 39.2 % (39.6-49.0) L 11/27/17 04:43 Plt Count 206 K/uL (152-406) 11/27/17 04:43 Sodium 140 mEq/L (135-145) 11/27/17 04:43 Potassium 3.8 mEq/L (3.6-5.0) 11/27/17 04:43 BUN < 5 mg/dL (6-20) L 11/27/17 04:43 Creatinine 0.97 mg/dL (0.61-1.24) 11/27/17 04:43 Glucose 91 mg/dL (65-120) 11/27/17 04:43 Magnesium 2.0 mg/dL (1.8-2.5) 11/27/17 04:43 Total Bilirubin 1.2 mg/dL (0.3-1.2) 11/23/17 18:20 AST 30 IU/L (10-42) 11/23/17 18:20 ALT 31 IU/L (10-60) 11/23/17 18:20 Alkaline Phosphatase 87 IU/L (42-121) 11/23/17 18:20 Amylase 46 U/L (28-100) 11/23/17 18:20 Lipase 27 U/L (22-51) 11/23/17 18:20 Home Medications: Dexlansoprazole [Dexilant] 30 mg PO DAILY 11/23/17 Nebivolol HCl [Bystolic] 10 mg PO DAILY 11/23/17 Patient Discharge Instructions: Please f/u with PCP and in 1 to 2 week post discharge. Please f/u with Dr conway in 1 to 2 week post discharge. No new medication. Continue taking all medication as precribed by PCP. High fiber diet Diet: Regular Activity: Ad chencho Followup: Yosi Conway MD [ACTIVE - CAN ADMIT] - 1 Week (Call for appointment)
== END 2017-11-27 14:14 | disposition home or self-care (01) | DRG 390 ==
LOC: ER 17:36 → ERHOLD 22:14 → 2ND 23:42
PROVIDERS: ADMIT Internal Medicine; ATTEND Family Medicine
DX: K56.600 Partial intestinal obstruction, unspecified as to cause (principal); K21.9 Gastro-esophageal reflux disease without esophagitis; I10 Essential (primary) hypertension; E87.6 Hypokalemia; E86.0 Dehydration; K76.0 Fatty (change of) liver, not elsewhere classified; F17.290 Nicotine dependence, other tobacco product, uncomplicated
CPT/HCPCS: 36415; 74018; 74177; 74250; 80048; 80076; 81003; 81015; 82150; 83690; 83735; 85025; 87040; 96361; 96365; 96366; 96368; 96375; 99285; C9113; J0744; J1650; J2405; J3475; J7030; Q9967

== ENCOUNTER 2017-12-11 10:25 | Emergency (ER) | payer BC ==
--- OUTSIDE RECORDS SUMMARY | 2017-12-11 10:32 | XMS REPORT ---
:1975 Author Organization [employer] Care Team Providers Name Role Phone Annalise Lih Provider Role Unavailable Allergies, Adverse Reactions, Alerts Substance Reaction Event Type N.K.D.A. 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 Assessment Encounter for preventative adult Z00.01 Active health care exam with abnormal findings Problem Chronic diarrhea K52.9 Active Problem History of Helicobacter pylori Z86.19 Active infection Problem HTN (hypertension), benign I10 Active Problem Gastritis without bleeding, K29.70 Active unspecified chronicity, unspecified gastritis type Problem Seasonal allergic rhinitis, J30.2 Active unspecified trigger Problem GERD without esophagitis K21.9 Active Problem Diverticulosis of large intestine K57.30 Active without hemorrhage Assessment History of Helicobacter pylori Z86.19 Active infection Assessment GERD without esophagitis K21.9 Active Assessment Gastritis without bleeding, K29.70 Active unspecified chronicity, unspecified gastritis type Assessment Chewing tobacco nicotine dependence F17.229 Active with nicotine-induced disorder Assessment Diverticulosis of large intestine K57.30 Active without hemorrhage Assessment Chronic diarrhea K52.9 Active Assessment Seasonal allergic rhinitis, J30.2 Active unspecified trigger Medications Medication Code Code Instructions Start End Status Dosage System Date Probiotic Pearls [facility] 60908364588 - Orally Active not defined Hyoscyamine [facility] 23141324224 0.125 MG Active 1 tablet as Sulfate Orally every 4 needed hrs Preparation H [facility] [address]-15 0.25-3-12-18 % Active not defined Rectal Zantac 150 [facility] 01731735617 150 MG Orally Active 1 tablet at Maximum Strength Once a day bedtime Bystolic [facility] 71754655084 10 MG Orally Active 1 tablet Once a day Methscopolamine [facility] 73773086857 5 MG Orally Active 1 tablet 30 [place] Four times a minutes day before meals and at bedtime Montelukast [facility] 83255493614 10 MG Orally Amalia Active 1 tablet Sodium Once a day 2017 Proctofoam HC [facility] 20928591339 1-1 % Rectal Active 1 application Four times a as needed day Dexilant [facility] 57629175052 60 MG Orally Active 1 capsule Once a day Results No Known Results Summary Purpose eClinicalWorks Submission
[2017-12-11] MEDS ORDERED: NA CHLORIDE 0.9% 1,000 ML ONE (11:07)
[2017-12-11] MEDS ORDERED: PROMETHAZINE 25 MG TABLET ONE (11:07)
[2017-12-11 11:18] LABS: Absolute Lymphocytes (CBC) 1.5 K/uL (0.7-4.9); Absolute Monocytes 0.5 K/uL (0.1-1.3); Absolute Neutrophil 5.9 K/uL (1.8-8.0); Basophils % 0.4 % (0-1.3); Eosinophils % 0.6 % (0-4.4); Hematocrit 46.9 % (39.6-49.0); Lymphocytes % 19.1 % (15.3-44.8); MCH 31.1 pg (27.0-35.0); MCV 92.5 fL (80-100); MPV 8.2 fL (7.6-11.3); RBC Red Blood Cell Count 5.07 M/uL (4.33-5.43)
[2017-12-11 11:23] LABS: Urine Blood NEGATIVE (NEG); Urine Glucose NEGATIVE (NEG); Urine Protein NEGATIVE (NEG)
[2017-12-11 11:37] LABS: Albumin 4.6 g/dL (3.4-5.0); Bilirubin Direct 0.2 mg/dL (0-0.2); Bilirubin Total 0.9 mg/dL (0.2-1.0); Potassium 4.2 mmol/L (3.5-5.1); Protein, Total 8.5 g/dL (6.4-8.2)
[2017-12-11 11:40] LABS: Urine Bacteria NONE SEEN /HPF (NONE SEEN); Urine Culture Reflex Order NOT NEEDED; Urine RBC NONE SEEN /HPF (NONE SEEN)
--- NOTE | 2017-12-11 12:01 | RAD REPORT ---
EXAM DESCRIPTION: RAD - Abdomen Acute Series - 12/11/2017 11:50 am CLINICAL HISTORY: Abdominal pain FINDINGS: The bowel gas pattern is unremarkable with moderate amount of stool throughout the colon. No abnormal calcification is displayed. The lungs appear clear. Free air is not seen beneath the diaphragm
--- NOTE | 2017-12-11 12:22 | ER ---
Nurse's Notes [facility] Name: Deniz Sanchez Jr Age: 42 yrs Sex: Male : 1975 Arrival Date: 12/11/2017 Time: 10:27 Bed 13 Private MD: Silvestre Li Diagnosis: Constipation, unspecified;Upper abdominal pain, unspecified Presentation: 12/11 10:34 Presenting complaint: Patient states: LUQ pain that began about two days ago, worsened sg today with eating a banana and Jannet Sausages, Lupe been eating soft foods. Reports Nausea this morning, denies vomiting, reports normal BM's, just concerned about the pain d/t having a SBO last week that caused him to be hospitalized. Admitting Doctor Dr.R Li, has GI with . Transition of care: patient was not received from another setting of care. Onset of symptoms was December 11, 2017. Risk Assessment: Do you want to hurt yourself or someone else? Patient reports no desire to harm self or others. Initial Sepsis Screen: Does the patient meet any 2 criteria? No. Patient's initial sepsis screen is negative. Does the patient have a suspected source of infection? No. Patient's initial sepsis screen is negative. Care prior to arrival: None. 10:34 Method Of Arrival: Ambulatory sg 10:34 Acuity: CHARLES 3 sg Triage Assessment: 11:00 General: Appears in no apparent distress. Behavior is calm, cooperative, appropriate sg for age. Historical: - Allergies: 10:37 No Known Allergies; sg - Home Meds: 10:37 Bystolic oral oral [Active]; Antacid [Active]; sg - PMHx: 10:37 Small Bowel Obstruction; Hypertension; sg - PSHx: 10:37 None; sg - Immunization history:: Adult Immunizations up to date. - Social history:: Smoking status: Patient uses tobacco products, chewing tobacco. - Ebola Screening: : Patient negative for fever greater than or equal to 101.5 degrees Fahrenheit, and additional compatible Ebola Virus Disease symptoms Patient denies exposure to infectious person Patient denies travel to an Ebola-affected area in the 21 days before illness onset No symptoms or risks identified at this time. Screenin:00 Abuse screen: Denies threats or abuse. Denies injuries from another. Nutritional sg screening: No deficits noted. Tuberculosis screening: No symptoms or risk factors identified. Never had TB. Fall Risk None identified. Assessment: 11:00 General: Appears in no apparent distress. comfortable, well groomed, well developed, sg well nourished, Behavior is calm, cooperative, appropriate for age. Pain: Complains of pain in left upper quadrant Pain does not radiate. Quality of pain is described as aching, tender. Neuro: Level of Consciousness is awake, alert, obeys commands, Oriented to person, place, time, situation, Automatic Spinning Lathe Setter are equal bilaterally Moves all extremities. Gait is steady, Speech is normal, Facial symmetry appears normal. Cardiovascular: Heart tones S1 S2 present Capillary refill is brisk in bilateral fingers Patient's skin is warm and dry. Chest pain is denied. Respiratory: Airway is patent Respiratory effort is even, unlabored, Respiratory pattern is regular, symmetrical, Denies cough, shortness of breath labored breathing. GI: Abdomen is flat, non-distended, Bowel sounds present X 4 quads. Abd is soft X 4 quads Abdomen is tender to palpation in left upper quadrant Reports upper abdominal pain, nausea, vomiting. : No signs and/or symptoms were reported regarding the genitourinary system. EENT: No signs and/or symptoms were reported regarding the EENT system. Derm: Skin is pink, warm \T\ dry. Musculoskeletal: No signs and/or symptoms reported regarding the musculoskeletal system. Vital Signs: 10:38 BP 127 / 92; Pulse 84; Resp 17 S; Pulse Ox 98% on R/A; Weight 70.76 kg (R); Height 5 sg ft. 10 in. (177.80 cm) (R); Pain 7/10; 11:54 BP 129 / 90; Pulse 76; Resp 16; Pulse Ox 100% on R/A; mh5 12:50 BP 128 / 88; Pulse 70; Resp 16 S; Pulse Ox 100% on R/A; Pain 4/10; sg 10:38 Body Mass Index 22.38 (70.76 kg, 177.80 cm) sg ED Course: 10:27 Patient arrived in ED. sb2 10:27 Silvestre Li DO is Private Physician. sb2 10:27 [facility] snw 10:27 Bin Reilly MD is Attending Physician. snw 10:33 Perico Paul, RN is Primary Nurse. sg 10:36 Triage completed. sg 10:36 Arm band placed on. sg 11:13 Inserted saline lock: 22 gauge in left antecubital area, using aseptic technique. Blood mh5 collected. 11:13 Initial lab(s) drawn, by me, sent to lab. mh5 11:31 Patient has correct armband on for positive identification. Placed in gown. Bed in low mh5 position. Call light in reach. Side rails up X 1. Warm blanket given. Pulse ox on. NIBP on. 11:47 XRAY Abdomen Acute Series In Process Unspecified. EDMS 12:21 Silvestre Li DO is Referral Physician. snw 12:50 No provider procedures requiring assistance completed. IV discontinued, intact, sg bleeding controlled, No redness/swelling at site. Pressure dressing applied. Administered Medications: 11:15 Drug: Phenergan 25 mg Route: PO; sg 12:10 Follow up: Response: No adverse reaction; Pain is decreased; Nausea is decreased sg 11:15 Drug: NS 0.9% 1000 ml Route: IV; Rate: 1 bolus; Site: left antecubital; sg 12:20 Follow up: Response: No adverse reaction; IV Status: Completed infusion; IV Intake: sg 990ml Intake: 12:20 IV: 990ml; Total: 990ml. sg Outcome: 12:21 Discharge ordered by MD. snw 12:50 Discharged to home ambulatory. sg 12:50 Condition: good 12:50 Discharge instructions given to patient, Instructed on discharge instructions, follow up and referral plans. medication usage, safety practices, Demonstrated understanding of instructions, follow-up care, medications. 12:54 Patient left the ED. sg Signatures: Dispatcher [employer] EDIL Perico Paul, KIMBERLY RN sg Yudith Anaya, CUSHION MAKER-C CUSHION MAKER-Csnw Ml [place] 5 Edie Mathew sb2 Corrections: (The following items were deleted from the chart) 11:32 11:31 Pulse ox on. NIBP on. mh5 mh5
--- NOTE | 2017-12-11 12:22 | EDPHYS ---
Physician Documentation [facility] Name: Deniz Sanchez Jr Age: 42 yrs Sex: Male : 1975 Arrival Date: 12/11/2017 Time: 10:27 Bed 13 Private MD: Guillermo [facility] ED Physician Bin Reilly HPI: 12/11 11:00 This 42 yrs old Male presents to ER via Ambulatory with complaints of snw Abdominal Pain. 11:00 The patient presents with abdominal pain in the left upper quadrant. Onset: The snw symptoms/episode began/occurred suddenly, 3 day(s) ago, and became persistent. The symptoms do not radiate. Associated signs and symptoms: Pertinent positives: nausea. The symptoms are described as steady. Modifying factors: The symptoms are alleviated by nothing. Severity of pain: At its worst the pain was moderate. The patient has not experienced similar symptoms in the past. The patient has been recently seen by a physician: the patient's primary care provider, The patient has been recently been admitted at [facility], was discharged last week, bowel obstruction hx. Historical: - Allergies: 10:37 No Known Allergies; sg - Home Meds: 10:37 Bystolic oral oral [Active]; Antacid [Active]; sg - PMHx: 10:37 Small Bowel Obstruction; Hypertension; sg - PSHx: 10:37 None; sg - Immunization history:: Adult Immunizations up to date. - Social history:: Smoking status: Patient uses tobacco products, chewing tobacco. - Ebola Screening: : Patient negative for fever greater than or equal to 101.5 degrees Fahrenheit, and additional compatible Ebola Virus Disease symptoms Patient denies exposure to infectious person Patient denies travel to an Ebola-affected area in the 21 days before illness onset No symptoms or risks identified at this time. ROS: 11:00 Constitutional: Negative for fever, chills, and weight loss, Eyes: Negative for injury, snw pain, redness, and discharge, ENT: Negative for injury, pain, and discharge, Neck: Negative for injury, pain, and swelling, Cardiovascular: Negative for chest pain, palpitations, and edema, Respiratory: Negative for shortness of breath, cough, wheezing, and pleuritic chest pain, Back: Negative for injury and pain, : Negative for injury, bleeding, discharge, and swelling, MS/Extremity: Negative for injury and deformity, Skin: Negative for injury, rash, and discoloration, Neuro: Negative for headache, weakness, numbness, tingling, and seizure. 11:00 Abdomen/GI: Positive for abdominal pain, of the right upper quadrant. Exam: 10:58 Constitutional: This is a well developed, dry appearing male who is awake, alert, and snw in no acute distress. Head/Face: Normocephalic, atraumatic. Eyes: Pupils equal round and reactive to light, extra-ocular motions intact. Lids and lashes normal. Conjunctiva and sclera are non-icteric and not injected. Cornea within normal limits. Periorbital areas with no swelling, redness, or edema. ENT: Nares patent. No nasal discharge, no septal abnormalities noted. Tympanic membranes are normal and external auditory canals are clear. Oropharynx with no redness, swelling, or masses, exudates, or evidence of obstruction, uvula midline. Mucous membranes moist. Neck: Trachea midline, no thyromegaly or masses palpated, and no cervical lymphadenopathy. Supple, full range of motion without nuchal rigidity, or vertebral point tenderness. No Meningismus. Chest/axilla: Normal chest wall appearance and motion. Nontender with no deformity. No lesions are appreciated. Cardiovascular: Regular rate and rhythm with a normal S1 and S2. No gallops, murmurs, or rubs. Normal PMI, no JVD. No pulse deficits. Respiratory: Lungs have equal breath sounds bilaterally, clear to auscultation and percussion. No rales, rhonchi or wheezes noted. No increased work of breathing, no retractions or nasal flaring. Abdomen/GI: Soft, tender to left upper quad, with normal bowel sounds. No distension or tympany. No guarding or rebound. Back: No spinal tenderness. No costovertebral tenderness. Full range of motion. Skin: Warm, dry with normal turgor. Normal color with no rashes, no lesions, and no evidence of cellulitis. MS/ Extremity: Pulses equal, no cyanosis. Neurovascular intact. Full, normal range of motion. Neuro: Awake and alert, GCS 15, oriented to person, place, time, and situation. Cranial nerves II-XII grossly intact. Motor strength 5/5 in all extremities. Sensory grossly intact. Cerebellar exam normal. Normal gait. Vital Signs: 10:38 BP 127 / 92; Pulse 84; Resp 17 S; Pulse Ox 98% on R/A; Weight 70.76 kg (R); Height 5 sg ft. 10 in. (177.80 cm) (R); Pain 7/10; 11:54 BP 129 / 90; Pulse 76; Resp 16; Pulse Ox 100% on R/A; mh5 12:50 BP 128 / 88; Pulse 70; Resp 16 S; Pulse Ox 100% on R/A; Pain 4/10; sg 10:38 Body Mass Index 22.38 (70.76 kg, 177.80 cm) sg MDM: 10:32 Patient medically screened. snw 12:28 Data reviewed: vital signs, nurses notes. Data interpreted: Pulse oximetry: on room air snw is 100 %. Interpretation: normal. Counseling: I had a detailed discussion with the patient and/or guardian regarding: the historical points, exam findings, and any diagnostic results supporting the discharge/admit diagnosis, the presence of at least one elevated blood pressure reading (>120/80) during this emergency department visit, lab results, radiology results, the need for outpatient follow up, to return to the emergency department if symptoms worsen or persist or if there are any questions or concerns that arise at home. Special discussion: Based on the patient's Hx, exam, and Dx evaluation, there is no indication for emergent surgery or inpatient Tx. It is understood by the patient/guardian that if the Sx's persist or worsen they need to return immediately for re-evaluation. I have referred the patient to see his PCP for further evaluation of high blood pressure. Based on the history and exam findings, there is no indication for further emergent testing or inpatient evaluation. I discussed with the patient/guardian the need to see the middle school music teacher for further evaluation of the symptoms. I discussed with the patient/guardian the need to see the primary care provider for further evaluation of the symptoms. 12/11 10:58 Order name: Basic Metabolic Panel; Complete Time: 11:37 snw 12/11 10:58 Order name: CBC with Diff; Complete Time: 11:30 snw 12/11 10:58 Order name: Creatinine for Radiology; Complete Time: 11:37 snw 12/11 10:58 Order name: Hepatic Function; Complete Time: 11:37 snw 12/11 10:58 Order name: Lipase; Complete Time: 11:37 12/11 10:58 Order name: Urine Microscopic Only; Complete Time: 11:41 12/11 10:52 Order name: XRAY Abdomen Acute Series; Complete Time: 12:09 12/11 10:58 Order name: IV Saline Lock; Complete Time: 11:03 12/11 10:58 Order name: Labs collected and sent; Complete Time: 11:12/11 11:15 Order name: Urine Dipstick--Ancillary (enter results); Complete Time: 11:30 ag Administered Medications: 11:15 Drug: Phenergan 25 mg Route: PO; sg 12:10 Follow up: Response: No adverse reaction; Pain is decreased; Nausea is decreased sg 11:15 Drug: NS 0.9% 1000 ml Route: IV; Rate: 1 bolus; Site: left antecubital; sg 12:20 Follow up: Response: No adverse reaction; IV Status: Completed infusion; IV Intake: sg 990ml Disposition: 18:17 Co-signature as Attending Physician, Bin Reilly MD. rn Disposition: 12/11/17 12:21 Discharged to Home. Impression: Constipation, unspecified, Upper abdominal pain, unspecified. - Condition is Stable. - Discharge Instructions: Abdominal Pain, Adult, Constipation, Adult, High-Fiber Diet, Hypertension. - Prescriptions for Miralax 17 gram/dose Oral - take 1 packet by ORAL route once daily dilute powder in 8 ounces of water or juice; 1 Container. - Work release form, Medication Reconciliation Form, Thank You Letter, Antibiotic Education, Prescription Opioid Use form. - Follow up: Silvestre Li, DO; When: 2 - 3 days; Reason: Recheck today's complaints, Continuance of care, Re-evaluation by your physician. Follow up: Emergency Department; When: As needed; Reason: Worsening of condition. Signatures: Dispatcher [employer] Perico Chaidez RN RN sg Yudith Anaya, DIRECTOR OF CURRICULUM AND INSTRUCTION-C DIRECTOR OF CURRICULUM AND INSTRUCTION-Csnw Bin Reilly MD MD metal bench patternmaker: (The following items were deleted from the chart) 12:54 12:21 12/11/2017 12:21 Discharged to Home. Impression: Constipation, unspecified; Upper sg abdominal pain, unspecified. Condition is Stable. Forms are Medication Reconciliation Form, Thank You Letter, Antibiotic Education, Prescription Opioid Use. Follow up: Silvestresierra Li; When: 2 - 3 days; Reason: Recheck today's complaints, Continuance of care, Re-evaluation by your physician. Follow up: Emergency Department; When: As needed; Reason: Worsening of condition. snw
[2017-12-11 12:59] VITALS: BP 129/90; O2SAT 100
== END 2017-12-11 12:54 | disposition home or self-care (01) ==
LOC: ER 10:25
DX: K59.00 Constipation, unspecified (principal); I10 Essential (primary) hypertension; F17.220 Nicotine dependence, chewing tobacco, uncomplicated
CPT/HCPCS: 36415; 74022; 80048; 80076; 81003; 81015; 83690; 85025; 96360; 99284; J7030

== ENCOUNTER 2021-11-28 10:34 | Emergency (ER) | payer BC ==
--- OUTSIDE RECORDS SUMMARY | 2021-11-28 10:38 | XMS REPORT | Continuity of Care Document ---
:1975 Author Organization [facility] t Address [address] [place] [address] Care Team Providers Name Role Phone Addis LI Primary Care Physician Unavailable Isaias ZUNIGA S Attending Clinician Leana BEJARANO Attending Clinician Unavailable Kenneth Boyd APN Attending Clinician Kenneth BOYD Attending Clinician Unavailable Doctor Unassigned, Name Attending Clinician Unavailable Hanna Denis MD Attending Clinician Kenneth BOYD Admitting Clinician Unavailable Payers Payer Name Policy Type Policy Number Effective Date Expiration Date 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 [facility] with [facility] nicotine-i nicotine-i Me dical nduced nduced Center disorder disorder Chronic Chronic Problem Active Common diarrhea diarrhea Spirit - CHI [facility] History of History of Problem Active C ommon Helicobact Helicobact Sp gina er pylori er pylori - CH I infection infection [facility] Gastritis Gastritis Problem Active Com mon without without Spirit bleeding, bleeding, - CH I unspecifie unspecifie [facility] chronicity chronicity Me dical , , Center unspecifie unspecifie d d gastritis gastritis type type Seasonal Seasonal Problem Active Commo n allergic allergic Spirit rhinitis, rhinitis, - CH I unspecifie unspecifie St d trigger d [facility] GERD GERD Problem Active Common without without Spirit esophagiti esophagiti - CHI s [facility] No known No known Disease Unive rs active active ity of problems problems [facility] Diverticul Diverticul Problem Active C ommon osis of osis of Spirit large large - CHI intestine intestine St without without [facility] hemorrhage hemorrhage Ms dical Center Abdominal Abdominal Problem Active Com mon bloating bloating [facility] Allergies, Adverse Reactions, Alerts Allergy Allergy Status Severity Reaction(s) Onset Inactive Treating Comm ents Source Name Type Date Date Clinician NO KNOWN Drug Active Univers ALLERGIE Class ity of S [facility] Social History Social Habit Start Date Stop Date Quantity Comments Source Exposure to Not sure [facility] SARS-CoV-2 (event) [facility] Sex Assigned At [birth year] [facility] 00:00:00 00:00:00 [facility] Smoking Status Start Date Stop Date Source Unknown if ever smoked [facility] Medications Ordered Filled Start Stop Current Ordering Indication Dosage Frequency Signature Comments Components Source Medication Medication Date Date Medication? Clinician (SIG) Name Name metoprolol 2020- No 50mg 50 mg, Univ ers succinate 12-06 Oral, ity of XL (TOPROL 04:45: 03:51 ONCE, 1 Erik as XL) tablet 00 :00 dose, Thu Medi tosha 50 mg 12/05/20 at Branch 2345, JENN NaCl 0.9% Yes 1000mL at 100 Univ ers (NS) IV 6-24 mL/hr, ity of infusion 04:30: Intravenou Erik as 1,000 mL 00 s, Medical CONTINUOUS Branch , Starting 12/05/20 at 2330, Until Discontinu ed, Routine KCL 2020- No 40meq 40 mEq, Univers (KLOR-CON 12-06 Oral, ity of M20) tablet 04:30: 03:25 [place]CE[place] 1 [place] 40 mEq 00 :00 dose, Wed Medical 12/05/20 at Branch 2330, Routine ondansetron 2020- No 4mg 4 mg, Slow Univers (ZOFRAN 12-06 IV Push, ity of (PF)) 03:15: 02:22 ONCE, 1 [place] injection 4 00 :00 dose, Wed Med ical mg 12/05/20 at Branch 2215, JENN metoprolol Yes 150mg Take 150 Un neptali succinate 6-24 mg by ity of XL (TOPROL 01:36: mouth 2 [place] XL) 100 mg 14 (two) Medical 24 hr times Branch tablet daily. losartan Yes 100mg Take 100 Univ ers 100 mg 6-24 mg by ity of tablet 01:36: mouth [place] 14 daily. Medical Branch pantoprazol Yes 40mg Take 40 mg Univers e 20 mg EC 24 by mouth ity o f tablet 01:36: daily. [place] [address] Medical Branch famotidine Yes 40mg Take 40 mg U nivers 40 mg -24 by mouth ity of tablet 01:36: daily. [place] [address] Medical Branch ondansetron 2020- No 4mg Take 4 mg Univers (ZOFRAN, 12-06 by mouth ity of HYDROCHLORI 01:36: 00:00 every 8 [place] 4 mg 02 :00 (eight) Medical tablet hours as Branch needed. nebivolol 2020- No 10mg Take 10 mg U nivers (BYSTOLIC) 12-06- by mouth ity of 10 mg 01:35: 00:00 daily. [place] tablet 56 :00 Medical Branch metroNIDAZO 2020- No 500mg Take 500 Univers LE (FLAGYL) 12-06- mg by ity of 500 mg 01:34: 00:00 mouth [place] tablet 34 :00 every 8 Medical (eight) Branch hours. Dexlansopra 2020- No Take by U nivers zole 12-06- mouth. ity of (DEXILANT) 01:34: 00:00 [place] 30 mg 25 :00 Medical capsule Branch clarithromy 2020- No 500mg Take 500 Univers yuri 500 mg 12-06-23 mg by ity of tablet 01:34: 00:00 mouth 2 [place] 19 :00 (two) Medical times Branch daily. ciprofloxac 2020- No 500mg Take 500 Univers in HCl 6-24 06-23 mg by ity of (CIPRO) 500 01:34: 00:00 [place] mg tablet 12 :00 every 12 Medica l (twelve) Branch hours. amoxicillin 2020-0 2020- No 500mg Take 500 Univers 500 mg 6-24 06-23 mg by ity of capsule 01:34: 00:00 mouth 2 [place] 09 :00 (two) Medical times [place] daily. Indication s: 2 caps PO BID KCL 2019- No 40meq 40 mEq, Univers (KLOR-CON 07-24- Oral, ity of M20) tablet 01:00: 00:08 ONCE, 1 [place] 40 mEq 00 :00 dose, [facility] 07/23/19 at Branch 1900, JENN NaCl 0.9% 2019- No 1000mL at 999 Uni vers (NS) bolus 07-23-09 mL/hr, ity of infusion 23:45: 00:08 1,000 mL, Erik as 1,000 mL 00 :00 IV Medical Infusion, [place] ONCE, 1 dose, [facility] 07/23/19 at 1745, STAT aspirin 2019- Yes 324mg 324 mg, Univer s chewable 07-12 Oral, ity of tablet 324 15:00: DAILY, [place] mg 00 First dose Medical on [facility] 07/12/19 at 0900, Until Discontinu ed, Routine metoprolol 2019- No 50mg 50 mg, Univ ers tartrate 07-12 Oral, ONCE ity of (LOPRESSOR) 04:15: 03:25 NOW, 1 [place] as tablet 50 00 :00 dose, Mon Medic al mg 07/11/19 at Branch 2215, Routine metoprolol 0 2019- No 2.5mg 2.5 mg, Un neptali (LOPRESSOR) 07-12 Slow IV ity of injection 03:30: 02:17 Push, [place] 2.5 mg 00 :00 ONCE, 1 Medical dose, [facility] 07/11/19 at 2130, JENN nitroglycer 2019-0 2020- No .4mg 0.4 mg, Un neptali in 07-12 Sublingual ity of (NITROSTAT) 03:00: 02:00 , ONCE, 1 [place] sublingual 00 :00 dose, Mon Medi tosha tablet 0.4 07/11/19 at Bra nch mg 2100, JENN NaCl 0.9% 2019-0 2019- No 1000mL at 999 Uni vers (NS) bolus 02-24 09-12 mL/hr, ity of infusion 21:30: 22:31 1,000 mL, Erik as 1,000 mL 00 :00 IV Medical Infusion, Branch ONCE, 1 dose, [place] 02/24/19 at 1630, JENN ciprofloxac 2018-0 Yes 500mg Take 500 U nivers in HCl 8-04 mg by ity of (CIPRO) 500 02:18: mouth [place] mg tablet 42 every 12 Medica l (twelve) Branch hours. metroNIDAZO 2018-0 Yes 500mg Take 500 U nivers LE (FLAGYL) 8-04 mg by ity of 500 mg 02:18: mouth [place] tablet 42 every 8 Medical (eight) Branch hours. ciprofloxac 2018-0 Yes 500mg Take 500 U nivers in HCl 8-04 mg by ity of (CIPRO) 500 02:18: mouth [place] mg tablet 42 every 12 Medica l (twelve) Branch hours. metroNIDAZO 2018-0 Yes 500mg Take 500 U nivers LE (FLAGYL) 8-04 mg by ity of 500 mg 02:18: mouth [place] tablet 42 every 8 Medical (eight) Branch hours. ciprofloxac 2018-0 Yes 500mg Take 500 U nivers in HCl 8-04 mg by ity of (CIPRO) 500 02:18: mouth [place] mg tablet 42 every 12 Medica l (twelve) Branch hours. metroNIDAZO 2018-0 Yes 500mg Take 500 U nivers LE (FLAGYL) 8-04 mg by ity of 500 mg 02:18: mouth [place] tablet 42 every 8 Medical (eight) Branch hours. ciprofloxac 2018-0 Yes 500mg Take 500 U nivers in HCl 8-04 mg by ity of (CIPRO) 500 02:18: mouth [place] mg tablet 42 every 12 Medica l (twelve) Branch hours. metroNIDAZO 2018-0 Yes 500mg Take 500 U nivers LE (FLAGYL) 8-04 mg by ity of 500 mg 02:18: mouth [place] tablet 42 every 8 Medical (eight) Branch hours. Montelukast Montelukast 2018-0 Yes Silvestre 1 tablet Common Sodium Sodium 6-11 Li Spirit 00:00: - CHI 00 [facility] nebivolol 2018-0 Yes 10mg Take 10 mg Un neptali (BYSTOLIC) 5-16 by mouth ity o f 10 mg 23:13: daily. [place] tablet 03 Medical Branch amoxicillin 2018-0 Yes 500mg Take 500 U nivers 500 mg 5-16 mg by ity of capsule 23:13: mouth 2 [place] 03 (two) Medical times Branch daily. Indication s: 2 caps PO BID ondansetron 2018-0 Yes 4mg Take 4 mg U nivers (ZOFRAN, 5-16 by mouth ity of HYDROCHLORI 23:13: every 8 Erik as [place],) 4 mg 03 (eight) Medical tablet hours as Branch needed. clarithromy 2018-0 Yes 500mg Take 500 U nivers yuri 500 mg 5-16 mg by ity of tablet 23:13: mouth 2 [place] [address] (two) Medical times Branch daily. Dexlansopra 2018-0 Yes Take by Un neptali zole 5-16 mouth. ity of (DEXILANT) 23:13: [place] 30 mg 03 Medical capsule Branch nebivolol 2018-0 Yes 10mg Take 10 mg Un nepatli (BYSTOLIC) 5-16 by mouth ity o f 10 mg 23:13: daily. [place] tablet 03 Medical Branch amoxicillin 2018-0 Yes 500mg Take 500 U nivers 500 mg 5-16 mg by ity of capsule 23:13: mouth 2 [place] [address] (two) Medical times Branch daily. Indication s: 2 caps PO BID ondansetron 2018-0 Yes 4mg Take 4 mg U nivers (ZOFRAN, 5-16 by mouth ity of HYDROCHLORI 23:13: every 8 [place],) 4 mg 03 (eight) Medical tablet hours as Branch needed. clarithromy 2018-0 Yes 500mg Take 500 U nivers yuri 500 mg 5-16 mg by ity of tablet 23:13: mouth 2 [place] [address] (two) Medical times Branch daily. Dexlansopra 2018-0 Yes Take by Un neptali zole 5-16 mouth. ity of (DEXILANT) 23:13: [place] 30 mg 03 Medical capsule Branch nebivolol 2018-0 Yes 10mg Take 10 mg Un neptali (BYSTOLIC) 5-16 by mouth ity o f 10 mg 23:13: daily. [place] tablet 03 Medical Branch amoxicillin 2018-0 Yes 500mg Take 500 U nivers 500 mg 5-16 mg by ity of capsule 23:13: mouth 2 [place] (two) Medical times Branch daily. Indication s: 2 caps PO BID ondansetron 2018-0 Yes 4mg Take 4 mg U nivers (ZOFRAN, 5-16 by mouth ity of HYDROCHLORI 23:13: every 8 [place],) 4 mg 03 (eight) Medical tablet hours as Branch needed. clarithromy 2018-0 Yes 500mg Take 500 U nivers yrui 500 mg 5-16 mg by ity of tablet 23:13: mouth 2 [place] (two) Medical times Branch daily. Dexlansopra 2018-0 Yes Take by Un neptali zole 5-16 mouth. ity of (DEXILANT) 23:13: [place] 30 mg 03 Medical capsule Branch nebivolol 2018-0 Yes 10mg Take 10 mg Un neptali (BYSTOLIC) 5-16 by mouth ity o f 10 mg 23:13: daily. [place] tablet 03 Medical Branch amoxicillin 2018-0 Yes 500mg Take 500 U nivers 500 mg 5-16 mg by ity of capsule 23:13: mouth 2 [place] (two) Medical times Branch daily. Indication s: 2 caps PO BID ondansetron 2018-0 Yes 4mg Take 4 mg U nivers (ZOFRAN, 5-16 by mouth ity of HYDROCHLORI 23:13: every 8 [place],) 4 mg 03 (eight) Medical tablet hours as Branch needed. clarithromy 2018-0 Yes 500mg Take 500 U nivers yuri 500 mg 5-16 mg by ity of tablet 23:13: mouth 2 [place] (two) Medical times Branch daily. Dexlansopra 2018-0 Yes Take by Un neptali zole 5-16 mouth. ity of (DEXILANT) 23:13: [place] 30 mg 03 Medical capsule Branch traMADOL 50 2018-0 Yes 50mg Take 1 Univ ers mg tablet 5-16 tablet by ity o f 00:00: mouth [place] 00 every 6 Medical (six) Branch hours as needed for Pain (scale 4-6). traMADOL 50 2018-0 Yes 50mg Take 1 Univ ers mg tablet 5-16 tablet by ity o f 00:00: mouth [place] 00 every 6 Medical (six) Branch hours as needed for Pain (scale 4-6). traMADOL 50 2017-0 Yes 50mg Take 1 Univ ers mg tablet 5-16 tablet by ity o f 00:00: mouth [place] 00 every 6 Medical (six) Branch hours as needed for Pain (scale 4-6). traMADOL 50 2017-0 Yes 50mg Take 1 Univ ers mg tablet 5-16 tablet by ity o f 00:00: mouth [place] 00 every 6 Medical (six) Branch hours as needed for Pain (scale 4-6). traMADOL 50 2017-0 2020- No 50mg Take 1 Uni vers mg tablet 5-16 - tablet by ity of 00:00: 00:00 mouth [place] 00 :00 every 6 Medical (six) Branch hours as needed for Pain (scale 4-6). Vital Signs Vital Name Observation Time Observation Value Comments Source Systolic blood 2020-12-06 04:30:00 147 mm[Hg] [facility] Diastolic blood 2020-12-06 04:30:00 95 mm[Hg] Unive [facility] Heart rate 2020-12-06 04:30:00 83 /min [facility] Respiratory rate 2020-12-06 04:30:00 13 /min [facility] Oxygen saturation in 2020-12-06 04:30:00 99 /min [facility] Arterial blood by [facility] Pulse oximetry Branch Body temperature 2020-12-06 01:32:00 36.94 Erica [facility] Body weight 2020-12-06 01:32:00 88.27 kg [facility] BMI 2020-12-06 01:32:00 28.74 kg/m2 [facility] Systolic blood 2020-12-06 04:30:00 147 mm[Hg] [facility]iver [facility] Diastolic blood 2020-12-06 04:30:00 95 [facility]Hg[facility] 2020-12-06 04:30:00 83 /min [facility] Respiratory rate 2020-12-06 04:30:00 13 /min [facility] [place] [facility] Oxygen saturation in 2020-12-06 04:30:00 99 /min University of Arterial blood by [facility] Pulse oximetry Branch Body temperature 2020-12-06 01:32:00 36.94 Erica [facility] [place] [facility] Body weight 2020-12-06 01:32:00 88.27 kg [facility] [place] [facility] BMI 2020-12-06 01:32:00 28.74 kg/m2 [facility] [place] [facility] Systolic blood 2019-07-24 00:00:00 158 mm[Hg] Univer sity of pressure [place] [facility] Diastolic blood 2019-07-24 00:00:00 98 mm[Hg] Unive rsity of pressure [place] [facility] Heart rate 2019-07-24 00:00:00 99 /min [facility] [place] [facility] Respiratory rate 2019-07-24 00:00:00 13 /min Univ [facility] [place] [facility] Oxygen saturation in 2019-07-24 00:00:00 99 /min University of Arterial blood by [facility] Pulse oximetry Branch Body temperature 2019-07-23 22:38:00 36.94 Erica [facility] [place] [facility] Body height 2019-07-23 22:36:00 175.3 cm [facility] [place] [facility] Body weight 2019-07-23 22:36:00 77.111 kg [facility] [place] [facility] BMI 2019-07-23 22:36:00 25.10 kg/m2 [facility] [place] [facility] Systolic blood 2019-07-24 00:00:00 158 mm[Hg] Univer sity of pressure [place] [facility] Diastolic blood 2019-07-24 00:00:00 98 mm[Hg] Unive rsity of pressure [place] [facility] Heart rate 2019-07-24 00:00:00 99 /min [facility] [place] [facility] Respiratory rate 2019-07-24 00:00:00 13 /min Univ [facility] [place] [facility] Oxygen saturation in 2019-07-24 00:00:00 99 /min University of Arterial blood by [facility] Pulse oximetry Branch Body temperature 2019-07-23 22:38:00 36.94 Erica [facility] [place] [facility] Body height 2019-07-23 22:36:00 175.3 cm [facility] [place] [facility] Body weight 2019-07-23 22:36:00 77.111 kg [facility] [place] [facility] BMI 2019-07-23 22:36:00 25.10 kg/m2 [facility] [place] [facility] Heart rate 2019-07-12 04:25:00 80 /min [facility] [place] [facility] Respiratory rate 2019-07-12 04:25:00 17 /min [facility] [place] [facility] Oxygen saturation in 2019-07-12 04:25:00 98 /min University of Arterial blood by [facility] [place] [facility] tosha Pulse oximetry Branch Systolic blood 2019-07-12 04:00:00 117 mm[Hg] Univer sity of pressure [place] [facility] Diastolic blood 2019-07-12 04:00:00 86 mm[Hg] Unive rsity of pressure [place] [facility] Body temperature 2019-07-12 01:30:00 36.61 Erica [facility] [place] [facility] Body height 2019-07-12 01:30:00 175.3 cm [facility] [place] [facility] Body weight 2019-07-12 01:30:00 77.111 kg [facility] [place] [facility] BMI 2019-07-12 01:30:00 25.10 kg/m2 [facility] [place] [facility] Heart rate 2019-07-12 04:25:00 80 /min [facility] [place] [facility] Respiratory rate 2019-07-12 04:25:00 17 /min [facility] [place] [facility] Oxygen saturation in 2019-07-12 04:25:00 98 /min University of Arterial blood by [facility] Pulse oximetry Branch Systolic blood 2019-07-12 04:00:00 117 mm[Hg] Univer sity of pressure [place] [facility] Diastolic blood 2019-07-12 04:00:00 86 mm[Hg] Unive rsity of pressure [place] [facility] Body temperature 2019-07-12 01:30:00 36.61 Erica [facility] [place] [facility] Body height 2019-07-12 01:30:00 175.3 cm [facility] [place] [facility] Body weight 2019-07-12 01:30:00 77.111 kg [facility] [place] [facility] BMI 2019-07-12 01:30:00 25.10 kg/m2 [facility] [place] [facility] Systolic blood 2019-02-24 23:30:00 139 mm[Hg] Univer sity of pressure [place] [facility] Diastolic blood 2019-02-24 23:30:00 100 mm[Hg] Unive rsity of pressure [facility] Heart rate 2019-02-24 23:30:00 82 /min Universi ty of [facility] Respiratory rate 2019-02-24 23:30:00 16 /min Univ ersity of [facility] Oxygen saturation in 2019-02-24 23:30:00 100 /min University of Arterial blood by [facility] Pulse oximetry Branch Body temperature 2019-02-24 19:59:00 36.44 Erica [facility] ersity of [facility] Body weight 2019-02-24 19:59:00 77.111 kg Universi ty [facility] BMI 2019-02-24 19:59:00 24.39 kg/m2 Universi ty [facility] Systolic blood 2019-02-24 23:30:00 139 mm[Hg] Univer sity of pressure [facility] Diastolic blood 2019-02-24 23:30:00 100 mm[Hg] Unive rsity of pressure [facility] Heart rate 2019-02-24 23:30:00 82 /min Universi ty [facility] Respiratory rate 2019-02-24 23:30:00 16 /min Univ ersity of [facility] Oxygen saturation in 2019-02-24 23:30:00 100 /min University of Arterial blood by [facility] Pulse oximetry Branch Body temperature 2019-02-24 19:59:00 36.44 Erica [facility] [facility] Body [facility] 2019-02-24 19:59:00 77.111 kg Universi [facility] BMI 2019-02-24 19:59:00 24.39 kg/m2 [facility] Procedures Procedure Date / Time Performing Clinician Source Performed EKG-12 LEAD 2020-12-06 03:51:45 Virginia Bejarano [facility] MAGNESIUM 2020-12-06 02:18:00 Virginia Bejarano [facility] TROPONIN I 2020-12-06 02:18:00 Virginia Bejarano [facility] THYROID STIMULATING 2020-12-06 02:18:00 Virginia Bejarano [facility] HORMONE [facility] COMP. METABOLIC PANEL 2020-12-06 02:18:00 Virginia Bejarano [facility] ([id number]) Medical Branch CBC WITH DIFF 2020-12-06 02:18:00 Virginia Bejarano [facility] CONSENT/REFUSAL FOR 2020-12-06 01:26:19 Doctor Unassigned, No [facility] [place] DI[facility]NOSIS [facility] TREATMENT Name Medical Branch XR CHEST 2 VW 2019-07-23 23:02:53 Garrett Boyd [facility] TROPONIN I 2019-07-23 22:53:00 Garrett Boyd [facility] COMP. METABOLIC PANEL 2019-07-23 22:53:00 Garrett Boyd [facility] ([id number]) [facility] CBC WITH DIFFERENTIAL 2019-07-23 22:53:00 Garrett Boyd [facility] D-DIMER 2019-07-23 22:53:00 Garrett Boyd [facility] EKG-12 LEAD 2019-07-23 22:46:17 Garrett Boyd [facility] NOTICE OF PRIVACY 2019-07-23 22:28:18 Doctor Unassigned, No [facility] PRACTICES Name [facility] CONSENT/REFUSAL FOR 2019-07-23 22:28:08 Doctor Unassigned, No [facility] [place] DIAGNOSIS AND TREATMENT Name [facility] TROPONIN I 2019-07-12 03:28:00 Virginia Bejarano [facility] XR CHEST 1 VW 2019-07-12 02:02:23 Virginia Bejarano [facility] LIPASE 2019-07-12 01:45:00 Virginia Bejarano [facility] TROPONIN I 2019-07-12 01:45:00 Virginia Bejarano [facility] COMP. METABOLIC PANEL 2019-07-12 01:45:00 Virginia Bejarano [facility] ([id number]) Medical [place] CBC WITH DIFFERENTIAL 2019-07-12 01:45:00 Virginia Bejarano [facility] PROTHROMBIN TIME / INR 2019-07-12 01:45:00 Virginia Bejarano [facility] ACTIVATED PARTIAL 2019-07-12 01:45:00 Virginia Bejarano [facility] EKG-12 LEAD 2019-07-12 01:43:14 Virginia Bejarano [facility] NOTICE OF PRIVACY 2019-07-12 01:25:10 Doctor Unassigned, No Univ [facility] PRACTICES Name Medical Branch CONSENT/REFUSAL FOR 2019-07-12 01:24:54 Doctor Unassigned, No [facility] DIAGNOSIS AND TREATMENT Name Medical Branch TROPONIN I 2019-02-24 22:34:00 Drew Denis [facility] D-DIMER 2019-02-24 21:15:00 Drew Denis [facility] XR CHEST 1 VW 2019-02-24 20:28:00 Drew Denis [facility] TROPONIN I 2019-02-24 20:16:00 Drew Denis [facility] BASIC METABOLIC PANEL 2019-02-24 20:16:[address] [facility] (NA, K, CL, CO2, Medical Branch GLUCOSE, BUN, CREATININE, CA) CBC WITH DIFFERENTIAL 2019-02-24 20:16:00 Drew Denis [facility] Encounters Start End Encounter Admission Attending Care Care Encounter Source Date/Time Date/Time Type Type Clinicians Facility Department ID 2020-12-05 2020-12-05 Emergency [facility] [id number] 20:36:00 23:43:00 Virginia Curry [id number] [place] [id number] [place] [address] [id number] [facility] 2020-12-05 2020-12-05 Emergency [facility] [id number] Univers 20:36:00 23:43:00 Virginia Curry [id number] ity [facility] 4.2.7.2[address] [place] [address] [id number] [place] [address] Branch 2020-12-05 2020-12-05 Emergency X [facility] ERT [id number] Univers 20:36:00 20:36:00 VIRGINIA [facility] 2019-07-23 2019-07-23 [facility] [id number] 16:34:51 18:11:00 Garrett Cooper Patricio [id number] [place] 4.2.7.2.686 [place] [id number] 2019-07-23 2019-07-23 Emergency [facility] [id number] Univers 16:34:51 18:11:00 GARRETT [facility] 2019-07-23 2019-07-23 Emergency [facility] [id number] [facility] 16:34:51 18:11:00 Garrett Curry [id number] ity of [place] 4.2.7.2.686 [facility] [id number] [address] 2019-07-23 2019-07-23 Orders Doctor SARA [id number] 00:00:00 00:00:00 Only Unassigned, CARMELA [id number] [facility] 4.2.7.2.68 [id number] 2019-07-23 2019-07-23 Orders Doctor SARA [id number] Univers 00:00:00 00:00:00 Only Unassigned, CARMELA [id number] ity of [facility] 4.2.7.2.686 [facility] [id number] [address] 2019-07-11 2019-07-11 [facility] [id number] 19:26:32 22:31:00 Virginia Curry [id number] [place] 4.2.7.2.686 [place] [id number] [facility] 2019-07-11 2019-07-11 Emergency [facility] [id number] [facility] 19:26:32 22:31:00 Virginia Curry [id number] ity of [place] [id number] [place] [id number] 2019-02-24 2019-02-[address] [facility] [id number] 15:05:15 18:58:00 Drew Curry [id number] [place] [id number] [place] [id number] [facility] 2019-02-24 2019-02-24 Emergency [facility], [facility] [id number] [facility] 15:05:15 18:58:00 Drew Curry [id number] i ty of [place] 4.2.7.2.686 [facility] [phone] [place] [id number] [address] 2018-02-05 2018-02-05 [facility] [id number] Common 13:50:00 13:50:[address] [facility] 2018-01-18 2018-01-18 [facility] 15 [id number] Common 16:14:00 16:14:[address] [facility] 2018-01-18 2018-01-18 [facility] 15 [id number] Common 09:58:00 09:58:[address] [facility] 2018-01-14 2018-01-14 [facility] 14 [id number] Common 11:00:00 11:00:[address] [facility] 2017-12-14 2017-12-14 [facility] 14 [id number] Common 15:15:00 15:15:[address] [facility] 2017-11-23 2017-11-23 [facility] 14 [id number] Common 13:30:00 13:30:[address] [facility] Results Test Description Test Time Test Comments Results Result Comments Source MAGNESIUM 2020-12-06 03:57:54 Test Item Value Reference Range Interpretation Comme nts MAGNESIUM (test code = 1893088021) 2.0 mg/dL 1.7-2.4 Lab Interpretation (test code = 83756-2) Normal [facility] [id number] 03:17:49 Test Item Value Reference Range Interpretation Comments TSH (test code = See_Comment [Automated message] [id number]) The system [employer] generated this result transmitted ref erence range: 0.45 - 4 .70 mIU/L. The refe rence range was not u sed to interpret this result as normal/abnor mal. Lab Interpretation (test Normal code = 44245-0) [facility] [id number] 02:59:10 Test Item Value Reference Range Interpretation Comments TROPONIN I (test 0.003 ng/mL See_Comment [Automated code = 8948352512) message] The system which generated this result transmitted reference range : <=0.034. The reference range was not used to interpret this result as normal/abnormal . KRISHNA (test code = Equal or Less than KRISNHA) 0.034 ng/ml---Normal ?Note: Cardiac troponin begins to rise 3-4 hours after the onset of ischemia. Repeat in 4-6 hours if the sample was drawn within 3-4 hours of the onset of the symptom and found normal. Between 0.035 and 0.120 ng/mL--- Borderline. Questionable myocardial injury or necrosis ? ?Note: Serial measurement may be necessary to confirm or exclude the diagnosis of myocardial injury or necrosis; Clinical correlation (symptoms, EKGs, imaging studies, and others) required; Repeat in 4-6 hours if clinically indicated. ? Equal or Higher than 0.121 ng/mL---Abnormal. Myocardial Injury or Necrosis Likely ? Biotin has been reported to cause a negative bias, interpret results relative to patient's use of biotin. ? Lab Interpretation Normal (test code = 69617-5) [facility] ([id number])2020-12-06 02:46:45 Test Item Value Reference Range Interpretation Comments NA (test code = 139 mmol/L 135-145 4160569444) K (test code = 3.2 mmol/L 3.5-5.0 L 3006238350) CL (test code = 105 mmol/L 98-108 4449723770) CO2 TOTAL (test code = 26 mmol/L 23-31 8228099256) AGAP (test code = 2-16 7500592577) BUN (test code = 15 mg/dL 7-23 1587449744) GLUCOSE (test code = 153 mg/dL 70-110 H 6235221613) CREATININE (test code = 1.19 mg/dL 0.60-1.25 0191254296) TOTAL BILI (test code = 0.7 mg/dL 0.1-1.5 4470082575) CALCIUM (test code = 9.2 mg/dL 8.6-10.6 2858221202) T PROTEIN (test code = 7.8 g/dL 6.3-8.2 8542529064) ALBUMIN (test code = 4.6 g/dL 3.5-5.0 9388118148) ALK PHOS (test code = 126 U/L 34-122 H 8320345702) ALTv (test code = 39 U/L 5-50 1742-6) AST(SGOT) (test code = 35 U/L 13-40 5013582294) eGFR (test code = mL/min/1.73m2 5073946322) KRISHNA (test code = KRISHNA) Association of Glomerular Filtration Rate (GFR) and Staging of Kidney Disease* + --+ --+ ------+| GFR (mL/min/1.73 m2) ?| With Kidney Damage ?| ?Without Kidney Damage+ --------+ --------+ +| ?>90 ?| ?Stage one ?| ? Normal ?+ ---+ ---+ -------+| ?60-89 ?| ?Stage two ?| ? Decreased GFR ? + --+ --+ ------+| ?30-59 ?| ?Stage three ?| ? Stage three ? + --+ --+ ------+| ?15-29 ?| ?Stage four ? | ? Stage four ?+ ---+ ---+ -------+| ?<15 (or dialysis) ? ?| ?Stage five ? | ? Stage five ?+ ---+ ---+ -------+ *Each stage assumes the associated GFR level has been in effect for at least three months. ?Stages 1 to 5, with or without kidney disease, indicate chronic kidney disease. Notes: Determination of stages one and two (with eGFR >59mL/min/1.73 m2) requires estimation of kidney damage for at least three months as defined by structural or functional abnormalities of the kidney, manifested by either:Pathological abnormalities or Markers of kidney damage (including abnormalities in the composition of the blood or urine or abnormalities in imaging tests). Lab Interpretation Abnormal (test code = 15902-6) [facility] WITH [id number] 02:30:23 Test Item Value Reference Range Interpretation Comments WBC (test code = See_Comment [Automated message] 8790-2) The system [employer] generated this result transmitted ref erence range: 4.20 - 1 0.70 10*3/?L. The re ference range was not u sed to interpret this result as normal/abnor mal. RBC (test code = See_Comment [Automated message] 074-8) The system [employer] generated this result transmitted ref erence range: 4.26 - 5 .52 10*6/?L. The re ference range was not u sed to interpret this result as normal/abnor mal. HGB (test code = 14.3 g/dL 12.2-16.4 718-7) HCT (test code = 41.1 % 38.4-49.3 4544-3) MCV (test code = 89.3 fL 81.7-95.6 787-2) MCH (test code = 31.1 pg 26.1-32.7 785-6) MCHC (test code = 34.8 g/dL 31.2-35.0 786-4) RDW-SD (test code 41.2 fL 38.5-51.6 = 56578-5) RDW-CV (test code 12.6 % 12.1-15.4 = 788-0) PLT (test code = See_Comment [Automated message] 287-3) The system [employer] generated this result transmitted ref erence range: 150 - 32 8 10*3/?L. The re ference range was not u sed to interpret this result as normal/abnor mal. MPV (test code = 10.2 fL 9.8-13.0 00813-5) NRBC/100 WBC (test See_Comment [Automat ed message] code = 7393251852) The syste m which generated this result transmitted ref erence range: 0.0 - 10 .0 /100 WBCs. The refer ence range was not u sed to interpret this result as normal/abnor mal. NRBC x10^3 (test <0.01 See_Comment [Automated message] code = 9577594614) The syste m which generated this result transmitted ref erence range: 10*3/?L. The reference range was not used to interpr et this result as normal/abnormal . GRAN MAT (NEUT) % 52.2 % (test code = 770-8) IMM GRAN % (test 0.40 % code = 4177075775) LYMPH % (test code 38.3 % = 736-9) MONO % (test code 7.1 % = 5905-5) EOS % (test code = 1.8 % 713-8) BASO % (test code 0.2 % = 706-2) GRAN MAT 4.34 10*3/uL 1.99-6.95 x10^3(ANC) (test code = 2777669519) IMM GRAN x10^3 0.03 10*3/uL 0.00-0.06 (test code = 8289460167) LYMPH x10^3 (test 3.19 10*3/uL 1.09-3.23 code = 731-0) MONO x10^3 (test 0.59 10*3/uL 0.36-1.02 code = 742-7) EOS x10^3 (test 0.15 10*3/uL 0.06-0.53 code = 711-2) BASO x10^3 (test <0.03 0.01-0.09 code = 704-7) [facility] [id number] 23:47:00 Test Item Value Reference Range Interpretation Comments TROPONIN I (test <0.012 See_Comment [Automated code = 0109877766) message] The system which generated this result transmitted reference range : <=0.034 ng/mL. The reference range was not used to interpr et this result as normal/abnormal . KRISHNA (test code = Equal or Less than KRISHNA) 0.034 ng/ml---Normal ?Note: Cardiac troponin begins to rise 3-4 hours after the onset of ischemia. Repeat in 4-6 hours if the sample was drawn within 3-4 hours of the onset of the symptom and found normal. Between 0.035 and 0.120 ng/mL--- Borderline. Questionable myocardial injury or necrosis ? ?Note: Serial measurement may be necessary to confirm or exclude the diagnosis of myocardial injury or necrosis; Clinical correlation (symptoms, EKGs, imaging studies, and others) required; Repeat in 4-6 hours if clinically indicated. ? Equal or Higher than 0.121 ng/mL---Abnormal. Myocardial Injury or Necrosis Likely ? Biotin has been reported to cause a negative bias, interpret results relative to patient's use of biotin. ? Lab Interpretation Normal (test code = 04789-0) [facility] ([id number])2019-07-23 23:36:00 Test Item Value Reference Range Interpretation Comments NA (test code = 141 mmol/L 135-145 4456272637) K (test code = 3.1 mmol/L 3.5-5 L 0011808142) CL (test code = 102 mmol/L 98-108 3031508236) CO2 TOTAL (test code = 26 mmol/L 23-31 2954162360) AGAP (test code = 2-16 7910309166) BUN (test code = 17 mg/dL 7-23 8909544690) GLUCOSE (test code = 122 mg/dL 70-110 H 1504631863) CREATININE (test code = 1.12 mg/dL 0.6-1.25 6307472449) TOTAL BILI (test code = 0.7 mg/dL 0.1-1.1 8955345346) CALCIUM (test code = 9.6 mg/dL 8.6-10.6 4110052755) T PROTEIN (test code = 7.9 g/dL 6.3-8.2 9979296807) ALBUMIN (test code = 5.1 g/dL 3.5-5 H 2252744279) ALK PHOS (test code = 111 U/L 34-122 9550127483) ALTv (test code = 42 U/L 5-50 1742-6) AST(SGOT) (test code = 45 U/L 13-40 H 6385544669) eGFR Calculation mL/min/1.73m2 (Non-) (test code = 8777636660) eGFR Calculation mL/min/1.73m2 () (test code = 8176840836) KRISHNA (test code = KRISHNA) Association of Glomerular Filtration Rate (GFR) and Staging of Kidney Disease* + --+ --+ ------+| GFR (mL/min/1.73 m2) ?| With Kidney Damage ?| ?Without Kidney Damage+ --------+ --------+ +| ?>90 ?| ?Stage one ?| ? Normal ?+ ---+ ---+ -------+| ?60-89 ?| ?Stage two ?| ? Decreased GFR ? + --+ --+ ------+| ?30-59 ?| ?Stage three ?| ? Stage three ? + --+ --+ ------+| ?15-29 ?| ?Stage four ? | ? Stage four ?+ ---+ ---+ -------+| ?<15 (or dialysis) ? ?| ?Stage five ? | ? Stage five ?+ ---+ ---+ -------+ *Each stage assumes the associated GFR level has been in effect for at least three months. ?Stages 1 to 5, with or without kidney disease, indicate chronic kidney disease. Notes: Determination of stages one and two (with eGFR >59mL/min/1.73 m2) requires estimation of kidney damage for at least three months as defined by structural or functional abnormalities of the kidney, manifested by either:Pathological abnormalities or Markers of kidney damage (including abnormalities in the composition of the blood or urine or abnormalities in imaging tests). Lab Interpretation Abnormal (test code = 83114-5) [facility] WorthD-[id number] 23:30:00 Test Item Value Reference Interpretation Comments Range D-DIMER (test code = See_Comment H [Autom ated 7670952679) message] The system which generated this result transmitted reference range : <0.41 ?g/mL (FEU). The reference range was not used to interpret this result as normal/abnormal . KRISHNA (test code = This test may be KRISHNA) used in conjunction with a clinical pretest probability (PTP) assessment model to exclude venous thromboembolism (VTE) in patients suspected of deep venous thrombosis (DVT) and pulmonary embolism (PE) A D-Dimer value less than 0.50 ?g/ml (FEU) has a negative predicative value of 96 to 100% (95% CI)and 97 to 100% (95% CI) as an aid in the diagnosis of deep vein thrombosis (DVT) and pulmonary embolism when there is low or moderate pretest probability of PE or DVT. D-Dimer values are expressed in initial fibrinogen equivalent units (FEU)" The assay results should be used with other information, including the clinical context, in forming a diagnosis. Lab Interpretation Abnormal (test code = 50034-4) [facility] 2 [id number] 23:18:51Impression: No radiographic evidence for acute cardiopulmonary disease. RL: 460 AFC: [id number] Indication: Generalized weakness, tachycardia Comparison: None available Findings: Single AP view of the chest. The cardiopericardial silhouette iswithin normal limits. The lungs are clear bilaterally. The visualized bonythorax is intact. [facility], Radiant Results Inft User - 07/23/2019 5:20 PM CSTIndication: Generalized weakness, tachycardiaComparison: None availableFindings: Single AP view of the chest. The cardiopericardial silhouette iswithin normal limits. The lungs are clear bilaterally. The visualized bonythorax is intact.IMPRESSIONIm pression:No radiographic evidence for acute cardiopulmonary disease.RL: 460AFC: [id number] signed by Macey Bear MD, PhD at 07/23/2019 5:18 PM [facility] [id number] 23:12:00 Test Item Value Reference Range Interpretation Comments WBC (test code = See_Comment H [Automated 6690-2) message] The sy stem which generated this result transmitted reference range : 4.20 - 10.70 10*3/?L. The reference range was not used to interpret this result as normal/abnormal . RBC (test code = See_Comment [Automated 789-8) message] The sy stem which generated this result transmitted reference range : 4.26 - 5.52 10*6/?L. The reference range was not used to interpret this result as normal/abnormal . HGB (test code = 14.5 g/dL 12.2-16.4 718-7) HCT (test code = 42.7 % 38.4-49.3 4544-3) MCV (test code = 89.7 fL 81.7-95.6 787-2) MCH (test code = 30.5 pg 26.1-32.7 785-6) MCHC (test code = 34.0 g/dL 31.2-35 786-4) RDW-SD (test code = 41.3 fL 38.5-51.6 01479-1) RDW-CV (test code = 12.4 % 12.1-15.4 788-0) PLT (test code = See_Comment [Automated 777-3) message] The sy stem which generated this result transmitted reference range : 150 - 328 10*3/ ?L. The reference r primitivo was not used to interpret this result as normal/abnormal . MPV (test code = 9.7 fL 9.8-13 L 70536-5) NRBC/100 WBC (test See_Comment [Automat ed code = 0523328541) message] The system which generated this result transmitted reference range : 0.0 - 10.0 /100 WBCs. The refer ence range was not u sed to interpret th is result as normal/abnormal . NRBC x10^3 (test code <0.01 See_Comment [Auto mated = 7437571396) message] The s ystem which generated this result transmitted reference range : 10*3/?L. The reference range was not used to interpret this result as normal/abnormal . GRAN MAT (NEUT) % 72.7 % (test code = 770-8) IMM GRAN % (test code 0.40 % = 8887728992) LYMPH % (test code = 18.0 % 736-9) MONO % (test code = 7.3 % 5905-5) EOS % (test code = 1.2 % 713-8) BASO % (test code = 0.4 % 706-2) GRAN MAT x10^3(ANC) 7.84 10*3/uL 1.99-6.95 H (test code = 8082864753) IMM GRAN x10^3 (test 0.04 10*3/uL 0-0.06 code = 2882197816) LYMPH x10^3 (test code 1.94 10*3/uL 1.09-3.23 = 731-0) MONO x10^3 (test code 0.79 10*3/uL 0.36-1.02 = 742-7) EOS x10^3 (test code = 0.13 10*3/uL 0.06-0.53 711-2) BASO x10^3 (test code 0.04 10*3/uL 0.01-0.09 = 704-7) Lab Interpretation Abnormal (test code = 17223-6) [facility] WorthFAVIO [id number] 04:06:00 Test Item Value Reference Range Interpretation Comments TROPONIN I (test <0.012 See_Comment [Automated code = 3277575564) message] The system which generated this result transmitted reference range : <=0.034 ng/mL. The reference range was not used to interpr et this result as normal/abnormal . KRISHNA (test code = Equal or Less than KRISHNA) 0.034 ng/ml---Normal ?Note: Cardiac troponin begins to rise 3-4 hours after the onset of ischemia. Repeat in 4-6 hours if the sample was drawn within 3-4 hours of the onset of the symptom and found normal. Between 0.035 and 0.120 ng/mL--- Borderline. Questionable myocardial injury or necrosis ? ?Note: Serial measurement may be necessary to confirm or exclude the diagnosis of myocardial injury or necrosis; Clinical correlation (symptoms, EKGs, imaging studies, and others) required; Repeat in 4-6 hours if clinically indicated. ? Equal or Higher than 0.121 ng/mL---Abnormal. Myocardial Injury or Necrosis Likely ? Biotin has been reported to cause a negative bias, interpret results relative to patient's use of biotin. ? Lab Interpretation Normal (test code = 57963-3) [facility] WorthaPTT2020-01-28 02:35:00 Test Item Value Reference Range Interpretation Comments APTT Patient (test See_Comment [Automat ed code = 3173-2) message] The system which generated this result transmitted reference range : 23 - 38 Seconds . The reference range was not used to interpr et this result as normal/abnormal . KRISHNA (test code = KRISHNA) The [facility] patient population mean normal value for aPTT is 30 seconds. Lab Interpretation Normal (test code = 69168-8) [facility] WorthPROTHROMBIN TIME / [id number] 02:33:00 Test Item Value Reference Range Interpretation Comments PROTIME PATIENT (test See_Comment [Auto mated message] code = 5964-2) The system wh ich generated this result transmitted ref erence range: 12.0 - 1 4.7 Seconds. The re ference range was not u sed to interpret this result as normal/abnor mal. INR (test code = 6301-6) Nor mal INR <1.1; Warfarin Therap eutic range 2.0 to 3. 0 or 2.5 to 3.5, dep ending upon the indica tions. Lab Interpretation (test Normal code = 48995-7) [facility] WorthTROP[facility]IN [id number] 02:22:00 Test Item Value Reference Range Interpretation Comments TROPONIN I (test <0.012 See_Comment [Automated code = 9131224405) message] The system which generated this result transmitted reference range : <=0.034 ng/mL. The reference range was not used to interpr et this result as normal/abnormal . KRISHNA (test code = Equal or Less than KRISHNA) 0.034 ng/ml---Normal ?Note: Cardiac troponin begins to rise 3-4 hours after the onset of ischemia. Repeat in 4-6 hours if the sample was drawn within 3-4 hours of the onset of the symptom and found normal. Between 0.035 and 0.120 ng/mL--- Borderline. Questionable myocardial injury or necrosis ? ?Note: Serial measurement may be necessary to confirm or exclude the diagnosis of myocardial injury or necrosis; Clinical correlation (symptoms, EKGs, imaging studies, and others) required; Repeat in 4-6 hours if clinically indicated. ? Equal or Higher than 0.121 ng/mL---Abnormal. Myocardial Injury or Necrosis Likely ? Biotin has been reported to cause a negative bias, interpret results relative to patient's use of biotin. ? Lab Interpretation Normal (test code = 05109-7) [facility] 1 [id number] 02:12:13 No acute cardiopulmonary process. Preliminary Report Dictated by Resident: Augie Salgado MD., have reviewed this study and agree with the abovereport.PROCEDURE: XR CHEST 1 VW CLINICAL INDICATION: chest pain COMPARISON: 02/24/2019 TECHNIQUE: A frontal view of the chest was obtained FIND INGS: The lungs are well-expanded and clear without focal consolidation, pleuraleffusion, or pneumothorax. The cardiac silhouette is normal in size. No acute osseous abnormality. [facility], Radiant Results Inft User - 07/11/2019 8:13 PM CSTPROCEDURE: XR CHEST 1 VWCLINICAL INDICATION: chest pain COMPARISON: 02/24/2019TECHNIQUE: A frontal view of the chest was obtainedFINDINGS:The lungs are well-expandedand clear without focal consolidation, pleuraleffusion, or pneumothorax. The cardiac silhouette is normal in size. No acute osseous abnormality. IMPRESSIONNo acute cardiopulmonary process.Preliminary Report Dictated by Resident: Augie Jernigan MD., have reviewed this study and agree withthe abovereport.[facility] WorthCOMP. METABOLIC PANEL ([id number])2019-07-12 02:10:00 Test Item Value Reference Range Interpretation Comments NA (test code = 138 mmol/L 135-145 2659718000) K (test code = 3.4 mmol/L 3.5-5 L 8240715927) CL (test code = 102 mmol/L 98-108 9894040542) CO2 TOTAL (test code = 26 mmol/L 23-31 6067825726) AGAP (test code = 2-16 9294973809) BUN (test code = 15 mg/dL 7-23 7868337368) GLUCOSE (test code = 151 mg/dL 70-110 H 7897424976) CREATININE (test code = 1.08 mg/dL 0.6-1.25 9122578277) TOTAL BILI (test code = 0.6 mg/dL 0.1-1.1 7951504914) CALCIUM (test code = 9.4 mg/dL 8.6-10.6 0145646378) T PROTEIN (test code = 8.2 g/dL 6.3-8.2 0231121873) ALBUMIN (test code = 4.8 g/dL 3.5-5 4044614371) ALK PHOS (test code = 111 U/L 34-122 2070833877) ALTv (test code = 29 U/L 5-50 1742-6) AST(SGOT) (test code = 34 U/L 13-40 1965476672) eGFR Calculation mL/min/1.73m2 (Non-) (test code = 0132630497) eGFR Calculation mL/min/1.73m2 () (test code = 9132485578) KRISHNA (test code = KRISHNA) Association of Glomerular Filtration Rate (GFR) and Staging of Kidney Disease* + --+ --+ ------+| GFR (mL/min/1.73 m2) ?| With Kidney Damage ?| ?Without Kidney Damage+ --------+ --------+ +| ?>90 ?| ?Stage one ?| ? Normal ?+ ---+ ---+ -------+| ?60-89 ?| ?Stage two ?| ? Decreased GFR ? + --+ --+ ------+| ?30-59 ?| ?Stage three ?| ? Stage three ? + --+ --+ ------+| ?15-29 ?| ?Stage four ? | ? Stage four ?+ ---+ ---+ -------+| ?<15 (or dialysis) ? ?| ?Stage five ? | ? Stage five ?+ ---+ ---+ -------+ *Each stage assumes the associated GFR level has been in effect for at least three months. ?Stages 1 to 5, with or without kidney disease, indicate chronic kidney disease. Notes: Determination of stages one and two (with eGFR >59mL/min/1.73 m2) requires estimation of kidney damage for at least three months as defined by structural or functional abnormalities of the kidney, manifested by either:Pathological abnormalities or Markers of kidney damage (including abnormalities in the composition of the blood or urine or abnormalities in imaging tests). Lab Interpretation Abnormal (test code = 10720-9) [facility] WorthLIPASE, [id number] 02:10:00 Test Item Value Reference Range Interpretation Comments LIPASE (test code = 0588321315) 180 U/L 0-220 Lab Interpretation (test code = Normal 11077-8) [facility] WorthCBC WITH [id number] 01:58:00 Test Item Value Reference Range Interpretation Comments WBC (test code = See_Comment [Automated 9128-2) message] The sy stem which generated this result transmitted reference range : 4.20 - 10.70 10*3/?L. The reference range was not used to interpret this result as normal/abnormal . RBC (test code = See_Comment [Automated 294-8) message] The sy stem which generated this result transmitted reference range : 4.26 - 5.52 10*6/?L. The reference range was not used to interpret this result as normal/abnormal . HGB (test code = 14.9 g/dL 12.2-16.4 718-7) HCT (test code = 44.4 % 38.4-49.3 4544-3) MCV (test code = 89.7 fL 81.7-95.6 787-2) MCH (test code = 30.1 pg 26.1-32.7 785-6) MCHC (test code = 33.6 g/dL 31.2-35 786-4) RDW-SD (test code = 39.8 fL 38.5-51.6 26887-6) RDW-CV (test code = 12.2 % 12.1-15.4 788-0) PLT (test code = See_Comment [Automated 517-3) message] The sy stem which generated this result transmitted reference range : 150 - 328 10*3/ ?L. The reference r primitivo was not used to interpret this result as normal/abnormal . MPV (test code = 9.8 fL 9.8-13 40756-7) NRBC/100 WBC (test See_Comment [Automat ed code = 7626765522) message] The system which generated this result transmitted reference range : 0.0 - 10.0 /100 WBCs. The refer ence range was not u sed to interpret th is result as normal/abnormal . NRBC x10^3 (test code <0.01 See_Comment [Auto mated = 6418641178) message] The s ystem which generated this result transmitted reference range : 10*3/?L. The reference range was not used to interpret this result as normal/abnormal . GRAN MAT (NEUT) % 51.7 % (test code = 770-8) IMM GRAN % (test code 0.20 % = 9516922606) LYMPH % (test code = 38.3 % 736-9) MONO % (test code = 5.8 % 5905-5) EOS % (test code = 3.4 % 713-8) BASO % (test code = 0.6 % 706-2) GRAN MAT x10^3(ANC) 4.41 10*3/uL 1.99-6.95 (test code = 4965615750) IMM GRAN x10^3 (test <0.03 0-0.06 code = 8468804618) LYMPH x10^3 (test code 3.26 10*3/uL 1.09-3.23 H = 731-0) MONO x10^3 (test code 0.49 10*3/uL 0.36-1.02 = 742-7) EOS x10^3 (test code = 0.29 10*3/uL 0.06-0.53 711-2) BASO x10^3 (test code 0.05 10*3/uL 0.01-0.09 = 704-7) Lab Interpretation Abnormal (test code = 52740-1) [facility] WorthFAVIO [id number] 23:47:00 Test Item Value Reference Range Interpretation Comments TROPONIN I (test 0.006 ng/mL See_Comment [Automated code = [id number]) message] The system which generated this result transmitted reference range : <=0.034. The reference range was not used to interpret this result as normal/abnormal . KRISHNA (test code = Equal or Less than KRISHNA) 0.034 ng/ml---Normal?Not e: Cardiac troponin begins to rise 3-4 hours after the onset of ischemia. Repeat in 4-6 hours if the sample was drawn within 3-4 hours of the onset of the symptom and found normal. Between 0.035 and 0.120 ng/mL--- Borderline. Questionable myocardial injury or necrosis?Note: Serial measurement may be necessary to confirm or exclude the diagnosis of myocardial injury or necrosis; Clinical correlation (symptoms, EKGs, imaging studies, and others) required; Repeat in 4-6 hours if clinically indicated.? Equal or Higher than 0.121 ng/mL---Abnormal. Myocardial Injury or Necrosis Likely? Biotin has been reported to cause a negative bias, interpret results relative to patient's use of biotin.? ? Lab Interpretation Normal (test code = 94548-5) [id number] 21:52:00 Test Item Value Reference Interpretation Comments Range D-DIMER (test code = <0.27 See_Comment [Autom ated [id number]) message] The system which generated this result transmitted reference range : <0.41 ?g/mL (FEU). The reference range was not used to interpret this result as normal/abnormal . KRISHNA (test code = This test may be KRISHNA) used in conjunction with a clinical pretest probability (PTP) assessment model to exclude venous thromboembolism (VTE) in patients suspected of deep venous thrombosis (DVT) and pulmonary embolism (PE) A D-Dimer value less than 0.50 ?g/ml (FEU) has a negative predicative value of 96 to 100% (95% CI)and 97 to 100% (95% CI) as an aid in the diagnosis of deep vein thrombosis (DVT) and pulmonary embolism when there is low or moderate pretest probability of PE or DVT. D-Dimer values are expressed in initial fibrinogen equivalent units (FEU)"The assay results should be used with other information, including the clinical context, in forming a diagnosis. Lab Interpretation Normal (test code = 28011-4) [facility] [id number] 20:55:00 Test Item Value Reference Range Interpretation Comments TROPONIN I (test 0.002 ng/mL See_Comment [Automated code = [id number]) message] The system which generated this result transmitted reference range : <=0.034. The reference range was not used to interpret this result as normal/abnormal . KRISHNA (test code = Equal or Less than KRISHNA) 0.034 ng/ml---Normal?Not e: Cardiac troponin begins to rise 3-4 hours after the onset of ischemia. Repeat in 4-6 hours if the sample was drawn within 3-4 hours of the onset of the symptom and found normal. Between 0.035 and 0.120 ng/mL--- Borderline. Questionable myocardial injury or necrosis?Note: Serial measurement may be necessary to confirm or exclude the diagnosis of myocardial injury or necrosis; Clinical correlation (symptoms, EKGs, imaging studies, and others) required; Repeat in 4-6 hours if clinically indicated.? Equal or Higher than 0.121 ng/mL---Abnormal. Myocardial Injury or Necrosis Likely? Biotin has been reported to cause a negative bias, interpret results relative to patient's use of biotin.? ? Lab Interpretation Normal (test code = 90608-7) [facility] (NA, K, CL, CO2, GLUCOSE, BUN, CREATININE, CA)2019-02-24 20:44:00 Test Item Value Reference Range Interpretation Comments NA (test code = 142 mmol/L 135-145 0395611276) K (test code = 3.7 mmol/L 3.5-5 2549316941) CL (test code = 108 mmol/L 98-108 2806128080) CO2 TOTAL (test code = 25 mmol/L 23-31 0348525381) AGAP (test code = 2-16 3814357279) BUN (test code = 15 mg/dL 7-23 3631121454) GLUCOSE (test code = 150 mg/dL 70-110 H 9061142040) CREATININE (test code = 1.20 mg/dL 0.6-1.25 6096440436) CALCIUM (test code = 9.3 mg/dL 8.6-10.6 8942600249) eGFR Calculation mL/min/1.73m2 (Non-) (test code = 3798619877) eGFR Calculation mL/min/1.73m2 () (test code = 6558091078) KRISHNA (test code = KRISHNA) Association of Glomerular Filtration Rate (GFR) and Staging of Kidney Disease*+ + + +| GFR (mL/min/1.73 m2)?| With Kidney Damage?|?Without Kidney Damage+ --------+ --------+ +|?>90?|?S tage one?|? Normal?+ ---------+ ---------+ +|?60-89? |?Stage two?|? Decreased GFR? + --+ --+ ------+|?30-59?|?Stage three?|? Stage three? + --+ --+ ------+|?15-29?|?Stage four?? |? Stage four?+ -------+ -------+ +|?<15 (or dialysis)?|?Stage five? |? Stage five?+ -------+ -------+ +*Each stage assumes the associated GFR level has been in effect for at least three months.?Stages 1 to 5, with or without kidney disease, indicate chronic kidney disease.Notes: Determination of stages one and two (with eGFR >59mL/min/1.73 m2) requires estimation of kidney damage for at least three months as defined by structural or functional abnormalities of the kidney, manifested by either:Pathological abnormalities or Markers of kidney damage (including abnormalities in the composition of the blood or urine or abnormalities in imaging tests). Lab Interpretation Abnormal (test code = 85563-5) [facility] CHEST 1 [id number] 20:37:12HISTORY: Chest pain. TECHNIQUE: Portable AP erect view of the chest is obtained. Comparison madewith10/18/2018 study. FINDINGS: No acute pneumonia. No pneumothorax or pleural effusion orpulmonary congestion detected. Cardiac size is within normal limits. CONCLUSIONS: No signs of acute cardiopulmonary disease. [facility], Radiant Results Inft User - 02/24/2019 3:37 PM CDTHISTORY: Chest pain.TECHNIQUE: Portable AP erect view of the chest is obtained. Comparison madewith 10/18/2018 study.FINDINGS: No acute pneumonia. No pneumothorax or pleural effusion orpulmonary congestion detected. Cardiac size is within normal limits. CONCLUSIONS: No signs of acute cardiopulmonary disease.[facility] WorthCB WITH [id number] 20:30:00 Test Item Value Reference Range Interpretation Comments WBC (test code = See_Comment [Automated message] 6690-2) The system [employer] generated this result transmitted ref erence range: 4.20 - 1 0.70 10*3/?L. The re ference range was not u sed to interpret this result as normal/abnor mal. RBC (test code = See_Comment [Automated message] 789-8) The system [employer] generated this result transmitted ref erence range: 4.26 - 5 .52 10*6/?L. The re ference range was not u sed to interpret this result as normal/abnor mal. HGB (test code = 14.9 g/dL 12.2-16.4 718-7) HCT (test code = 42.6 % 38.4-49.3 4544-3) MCV (test code = 89.7 fL 81.7-95.6 787-2) MCH (test code = 31.4 pg 26.1-32.7 785-6) MCHC (test code = 35.0 g/dL 31.2-35 786-4) RDW-SD (test code 41.4 fL 38.5-51.6 = 82526-9) RDW-CV (test code 12.6 % 12.1-15.4 = 788-0) PLT (test code = See_Comment [Automated message] 777-3) The system [employer] generated this result transmitted ref erence range: 150 - 32 8 10*3/?L. The re ference range was not u sed to interpret this result as normal/abnor mal. MPV (test code = 10.0 fL 9.8-13 94537-1) NRBC/100 WBC (test See_Comment [Automat ed message] code = 4710246857) The syste m which generated this result transmitted ref erence range: 0.0 - 10 .0 /100 WBCs. The refer ence range was not u sed to interpret this result as normal/abnor mal. NRBC x10^3 (test <0.01 See_Comment [Automated message] code = 7620324076) The syste m which generated this result transmitted ref erence range: 10*3/?L. The reference range was not used to interpr et this result as normal/abnormal . GRAN MAT (NEUT) % 66.3 % (test code = 770-8) IMM GRAN % (test 0.20 % code = 8125551042) LYMPH % (test code 24.0 % = 736-9) MONO % (test code 7.3 % = 5905-5) EOS % (test code = 1.6 % 713-8) BASO % (test code 0.6 % = 706-2) GRAN MAT 5.37 10*3/uL 1.99-6.95 x10^3(ANC) (test code = 9588230839) IMM GRAN x10^3 <0.03 0-0.06 (test code = 3706798411) LYMPH x10^3 (test 1.95 10*3/uL 1.09-3.23 code = 731-0) MONO x10^3 (test 0.59 10*3/uL 0.36-1.02 code = 742-7) EOS x10^3 (test 0.13 10*3/uL 0.06-0.53 code = 711-2) BASO x10^3 (test 0.05 10*3/uL 0.01-0.09 code = 704-7) [facility]
[2021-11-28 11:04] LABS: Absolute Lymphocytes (CBC) 2.8 K/uL (0.7-4.9); Hematocrit 42.4 % (39.6-49.0); Lymphocytes % 34.2 % (15.3-44.8); MPV 7.6 fL (7.6-11.3)
--- NOTE | 2021-11-28 11:11 | RAD REPORT ---
EXAM DESCRIPTION: RAD - Chest Single View - 11/28/2021 11:01 am CLINICAL HISTORY: CHEST PAIN Chest pain. COMPARISON: Abdomen Acute Series dated 12/11/2017; Abdomen 1 View (KUB) dated 11/25/2017; Chest Single View dated 08/28/2017 FINDINGS: Portable technique limits examination quality. The lungs are grossly clear. The heart is upper limit of normal in size. No displaced fractures. IMPRESSION: No acute intrathoracic process suspected.
[2021-11-28 11:20] LABS: BUN Blood Urea Nitrogen 14 mg/dL (7-18); Bicarbonate 24 mmol/L (21-32); Glomerular Filtration Rate 63 ml/min (=/>90); Glucose Level 116 mg/dL (74-106); Potassium 3.4 mmol/L (3.5-5.1); Sodium Level 138 mmol/L (136-145)
[2021-11-28 11:28] LABS: Troponin High Sensitivity < 3.0 pg/mL (<58.9)
--- NOTE | 2021-11-28 11:46 | EDPHYS ---
Physician Documentation [facility] Name: Deniz Sanchez Jr Age: 46 yrs Sex: Male : 1975 Arrival Date: 11/28/2021 Time: 10:38 Bed 16 Private MD: ED Physician Leoncio Celeste HPI: 11/28 11:01 This 46 yrs old Male presents to ER via Ambulatory with complaints of Chest Pain. ms3 11:01 The patient or guardian reports chest pain that is located primarily in the anterior ms3 aspect of left upper chest and left arm. Onset: acutely, 2 week(s) ago. The pain does not radiate. Associated signs and symptoms: The patient has no apparent associated signs or symptoms. The chest pain is described as squeezing. Duration: The patient or guardian reports a single episode, that is still ongoing, but improving. Modifying factors: The symptoms are alleviated by nothing. the symptoms are aggravated by nothing. Severity of pain: At its worst the pain was moderate in the emergency department the pain has improved is a 3 / 10. 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 - Social history:: Smoking status: Patient reports use of chewing tobacco. ROS: 11:01 Constitutional: Negative for fever, and chills. Neck: Negative for injury, pain, and ms3 swelling, Respiratory: Negative for shortness of breath, cough, wheezing, and pleuritic chest pain, Abdomen/GI: Negative for abdominal pain, nausea, vomiting, diarrhea, and constipation, MS/Extremity: Negative for injury and deformity, Skin: Negative for injury, rash, and discoloration. 11:01 Cardiovascular: Positive for chest pain. 11:01 All other systems are negative. Exam: 10:40 Constitutional: This is a well developed, well nourished patient who is awake, alert, ms3 and in no acute distress. Head/Face: Normocephalic, atraumatic. Neck: Trachea midline, no cervical lymphadenopathy. Supple, full range of motion without nuchal rigidity, or vertebral point tenderness. No Meningismus. Chest/axilla: Normal chest wall appearance and motion. Nontender with no deformity. Cardiovascular: Regular rate and rhythm with a normal S1 and S2. No gallops, murmurs, or rubs. Normal PMI, no JVD. No pulse deficits. Respiratory: Lungs have equal breath sounds bilaterally, clear to auscultation and percussion. No rales, rhonchi or wheezes noted. No increased work of breathing, no retractions or nasal flaring. Abdomen/GI: Soft, non-tender, with normal bowel sounds. No distension or tympany. No guarding or rebound. No evidence of tenderness throughout. Skin: Warm, dry with normal turgor. Normal color with no rashes, no lesions, and no evidence of cellulitis. Psych: Awake, alert, with orientation to person, place and time. Behavior, mood, and affect are within normal limits. 10:40 ECG was reviewed by the Attending Physician. Vital Signs: 10:46 BP 165 / 96; Pulse 96; Resp 16; Temp 97.5(TE); Pulse Ox 100% on R/A; tw2 11:18 BP 146 / 90; Pulse 80; Resp 17; Pulse Ox 97% on R/A; tw2 11:42 BP 133 / 89; Pulse 87; Resp 17; Pulse Ox 97% on R/A; tw2 MDM: 10:51 Patient medically screened. ms3 11:01 Differential diagnosis: abnormal EKG, acute myocardial infarction, anxiety, coronary ms3 artery disease chest wall pain. 11:48 HEART Score: History: Slightly Suspicious (0), ECG: Normal (0), Age: > 45 and < 65 ms3 years (1), Risk Factors: 1 or 2 risk factors (1), Troponin: < or = 1 x Normal Limit (0), Total Score = 2. Data reviewed: vital signs, nurses notes, lab test result(s), EKG, radiologic studies. Data interpreted: rand cementer: rate is 87 beats/min, rhythm is normal sinus rhythm, regular, with no ectopy, Interpretation: normal rate, normal rhythm. 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 ED course: Discussed labs, chest x-ray, EKG, physical exam findings with patient. 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 Patient understands agrees with plan. All questions were answered. Return precautions discussed include worsening symptoms, or any other concerns. On reevaluation patient is alert and oriented x4, in no apparent distress, nontoxic, ambulatory in the emergency department, speaking full sentences.. 11/28 10:50 Order name: Basic Metabolic Panel; Complete Time: 11:39 ms3 11/28 10:50 Order name: CBC with Diff; Complete Time: 11:20 ms3 11/28 10:50 Order name: Troponin HS; Complete Time: 11:39 ms3 11/28 10:50 Order name: XRAY Chest (1 view); Complete Time: 11:20 ms3 11/28 10:50 Order name: EKG; Complete Time: 10:51 ms3 11/28 10:50 Order name: Cardiac monitoring; Complete Time: 10:56 ms3 11/28 10:50 Order name: EKG - Nurse/Tech; Complete Time: 10:56 ms3 11/28 10:50 Order name: IV Saline Lock; Complete Time: 10:56 ms3 11/28 10:50 Order name: Labs collected and sent; Complete Time: 10:56 ms3 11/28 10:50 Order name: O2 Per Protocol; Complete Time: 10:56 ms3 11/28 10:50 Order name: O2 Sat Monitoring; Complete Time: 10:56 ms3 EC:40 Rate is 96 beats/min. Rhythm is regular. QRS [place] is Normal. [place] interval is normal. QRS ms3 interval is normal. Clinical impression: Normal ECG. Interpreted by me. Administered Medications: No medications were administered Disposition Summary: 11/28/21 11:46 Discharge Ordered Location: Home ms3 Condition: Stable ms3 Diagnosis - Chest pain, unspecified ms3 - Renal insufficiency ms3 Followup: ms3 - With: Private Physician - When: 2 - 3 days - Reason: Re-evaluation by your physician Discharge Instructions: - Discharge Summary Sheet tw2 - Nonspecific Chest Pain, Adult ms3 Forms: - Work release form tw2 - Medication Reconciliation Form ms3 - Thank You Letter ms3 - Antibiotic Education ms3 - Prescription Opioid Use ms3 Signatures: Dispatcher [employer] Caitlyn Roberson RN RN tw2 Leoncio Celeste DO DO ms3
--- NOTE | 2021-11-28 11:46 | ER ---
Nurse's Notes [facility] Name: Deniz Sanchez Jr Age: 46 yrs Sex: Male : 1975 Arrival Date: 11/28/2021 Time: 10:38 Bed 16 Private MD: Diagnosis: Chest pain, unspecified;Renal insufficiency Presentation: 11/28 10:46 Chief complaint: Patient states: started having chest pain LEFTside and into left arm tw2 while sitting at desk at work. sharp pain. Coronavirus screen: At this time, the client does not indicate any symptoms associated with coronavirus-19. Ebola Screen: Patient denies travel to an Ebola-affected area in the 21 days before illness onset. Initial Sepsis Screen: Does the patient meet any 2 criteria? HR > 90 bpm. No. Patient's initial sepsis screen is negative. Does the patient have a suspected source of infection? No. Patient's initial sepsis screen is negative. Risk Assessment: Do you want to hurt yourself or someone else? Patient reports no desire to harm self or others. Note provider at bedside at this time. Onset of symptoms was November 28, 2021. 10:46 Method Of Arrival: Ambulatory tw2 10:46 Acuity: CHARLES 3 tw2 Historical: - Allergies: 10:47 No Known Allergies; tw2 - Home Meds: 10:47 Toprol XL Oral [Active]; losartan oral [Active]; Pepcid Oral [Active]; tw2 - PMHx: 10:47 Hypertension; SMALL BOWEL OBSTRUCTION; GERD; tw2 - Immunization history:: Client reports receiving the 2nd dose of the Covid vaccine. - Social history:: Smoking status: Patient reports use of chewing tobacco. Screenin:44 Abuse screen: Denies threats or abuse. Nutritional screening: No deficits noted. tw2 Tuberculosis screening: No symptoms or risk factors identified. Fall Risk None identified. Assessment: 10:57 General: Appears in no apparent distress. well groomed, Behavior is calm, cooperative, tw2 appropriate for age. Pain: Complains of pain in chest Pain radiates to left arm about 45 minutes ago. sharp pain that radiated to left arm while sitting at desk. no c/o pain at this time. Neuro: Level of Consciousness is awake, alert, obeys commands, Oriented to person, place, time, situation. Cardiovascular: Capillary refill < 3 seconds Patient's skin is warm and dry. Respiratory: Airway is patent Respiratory effort is even, unlabored, Respiratory pattern is regular, symmetrical. GI: No signs and/or symptoms were reported involving the gastrointestinal system. Musculoskeletal: Range of motion: intact in all extremities. 11:18 Reassessment: Patient appears in no apparent distress at this time. No changes from tw2 previously documented assessment. Patient and/or family updated on plan of care and expected duration. Pain level reassessed. Patient is alert, oriented x 3, equal unlabored respirations, skin warm/dry/pink. 11:42 Reassessment: provider at bedside at this time. tw2 11:52 Reassessment: Patient appears in no apparent distress at this time. No changes from tw2 previously documented assessment. Patient and/or family updated on plan of care and expected duration. Pain level reassessed. Patient is alert, oriented x 3, equal unlabored respirations, skin warm/dry/pink. Vital Signs: 10:46 BP 165 / 96; Pulse 96; Resp 16; Temp 97.5(TE); Pulse Ox 100% on R/A; tw2 11:18 BP 146 / 90; Pulse 80; Resp 17; Pulse Ox 97% on R/A; tw2 11:42 BP 133 / 89; Pulse 87; Resp 17; Pulse Ox 97% on R/A; tw2 ED Course: 10:38 Patient arrived in ED. tw2 10:40 Bed in low position. Call light in reach. guide changer on. Pulse ox on. NIBP on. tw2 10:43 Leoncio Celeste DO is Attending Physician. ms3 10:44 Caitlyn Whatley, KIMBERLY is Primary Nurse. tw2 10:44 Arm band placed on. EKG completed in triage. Results shown to MD. tw2 10:47 Triage completed. tw2 10:56 Inserted saline lock: 20 gauge in left antecubital area, using aseptic technique. Blood tw2 collected. 11:03 XRAY Chest (1 view) In Process Unspecified. EDMS 11:52 No provider procedures requiring assistance completed. IV discontinued, intact, tw2 bleeding controlled, No redness/swelling at site. Pressure dressing applied. Administered Medications: No medications were administered Medication: 10:58 VIS not applicable for this client. tw2 Outcome: 11:46 Discharge ordered by . ms3 11:52 Discharged to home ambulatory. tw2 11:52 Condition: stable 11:52 Discharge instructions given to patient, Instructed on discharge instructions, follow up and referral plans. Demonstrated understanding of instructions, follow-up care. 11:52 Patient left the ED. tw2 Signatures: Dispatcher [employer] Caitlyn Roberson RN RN tw2 Leoncio Celeste DO DO ms3
[2021-11-28 11:59] VITALS: TEMP 97.5
[2021-11-28 12:02] VITALS: O2SAT 97
[2021-11-28 12:04] VITALS: BP 133/89
--- NOTE | 2021-11-30 09:00 | EKG ---
Test Date: 2021-11-28 Test Time: 10:40:36 Survey Party Chief: ARSEN MEASUREMENT RESULTS: Intervals: Rate: 96 NM: 158 QRSD: 82 QT: 368 QTc: 464 [place]: P: 61 NM: 158 QRS: 48 T: 65 INTERPRETIVE STATEMENTS: Normal sinus rhythm Normal ECG Compared to ECG 10/04/2017 19:35:39 No significant changes Electronically Signed On 11-30-21 08:55:44 CDT by Kehinde Langston
== END 2021-11-28 11:52 | disposition home or self-care (01) ==
LOC: ER 10:34
DX: R07.9 Chest pain, unspecified (principal); N28.9 Disorder of kidney and ureter, unspecified; I10 Essential (primary) hypertension; K21.9 Gastro-esophageal reflux disease without esophagitis
CPT/HCPCS: 36415; 71045; 80048; 84484; 85025; 93005; 99284